=== PATIENT | female | born 2000 | race African-American/Black ===

== ENCOUNTER 2020-05-29 02:27 | Emergency (ER) | payer SELFPAY ==
[2020-05-29] MEDS ORDERED: predniSONE 20 MG TAB ONE (03:38)
[2020-05-29] MEDS ORDERED: NA CHLORIDE 0.9% 1,000 ML ONE (03:38)
[2020-05-29] MEDS ORDERED: DIPHENHYDRAMINE 50 MG/ML VIAL ONE (03:38)
[2020-05-29] MEDS ORDERED: METHYLPREDNISOLONE 125 MG INJ ONE (03:38)
[2020-05-29] MEDS ORDERED: FAMOTIDINE 20 MG/2 ML VIAL IV ONE (03:39)
[2020-05-29 03:53] LABS: Absolute Lymphocytes (CBC) 2.8 K/uL (0.7-4.9); Basophils % 0.7 % (0-1.3); Hematocrit 37.1 % (36.0-45.0); Lymphocytes % 33.3 % (15.3-44.8); MPV 8.8 fL (7.6-11.3); RBC Red Blood Cell Count 5.17 M/uL (3.86-4.86)
[2020-05-29 04:05] LABS: Bilirubin Total 0.4 mg/dL (0.2-1.0); Potassium 3.6 mmol/L (3.5-5.1)
[2020-05-29 04:15] LABS: Urine Blood 3+ (NEG); Urine Glucose NEGATIVE (NEG); Urine Protein NEGATIVE (NEG)
--- NOTE | 2020-05-29 04:18 | ER ---
Nurse's Notes [facility] Name: Rose Lucio Age: 19 yrs Sex: Female : 2000 Arrival Date: 05/29/2020 Time: 02:28 Bed 6 Private MD: Diagnosis: Allergic contact dermatitis Presentation: 05/29 03:06 Chief complaint: Patient states: she is having an allergic reaction to something which bb started yesterday pt recently travelled to [facility] but was okay when she arrived back, denies angioedema, difficulty swallowing. Coronavirus screen: At this time, the client does not indicate any symptoms associated with coronavirus-19. Ebola Screen: No symptoms or risks identified at this time. Onset: The symptoms/episode began/occurred suddenly. Anaphylaxis evaluation, no signs or symptoms of anaphylaxis were noted. Initial Sepsis Screen: Does the patient meet any 2 criteria? No. Patient's initial sepsis screen is negative. Does the patient have a suspected source of infection? No. Patient's initial sepsis screen is negative. Risk Assessment: Do you want to hurt yourself or someone else? Patient reports no desire to harm self or others. Onset of symptoms was May 28, 2020. 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 - Social history:: Smoking status: Patient denies any tobacco usage or history of. - Family history:: not pertinent. Screenin:30 Abuse screen: Denies threats or abuse. Denies injuries from another. Nutritional lp1 screening: No deficits noted. Tuberculosis screening: No symptoms or risk factors identified. Fall Risk None identified. Assessment: 03:45 General: Appears in no apparent distress. Behavior is calm, cooperative, appropriate lp1 for age. Pain: Denies pain. Neuro: Level of Consciousness is awake, alert, obeys commands. Cardiovascular: Patient's skin is warm and dry. Respiratory: Airway is patent Trachea midline Respiratory effort is even, unlabored, Respiratory pattern is regular, Breath sounds are clear bilaterally. Denies shortness of breath. GI: No signs and/or symptoms were reported involving the gastrointestinal system. : No signs and/or symptoms were reported regarding the genitourinary system. EENT: No signs and/or symptoms were reported regarding the EENT system. Derm: Skin is intact, Skin is dry, Skin is normal, Reports itching, to face and bilateral arms. Musculoskeletal: No deficits noted. 04:30 Reassessment: Patient appears in no apparent distress at this time. Patient states lp1 feeling better. Vital Signs: 03:06 BP 121 / 55; Pulse 69; Resp 14 S; Temp 98.2(O); Pulse Ox 100% on R/A; Weight 60.78 kg bb (R); Height 5 ft. 4 in. (162.56 cm) (R); Pain 0/10; 04:00 BP 111 / 90; Pulse 65; Resp 14; Pulse Ox 100% on R/A; lp1 04:45 BP 108 / 82; Pulse 70; Resp 14; Pulse Ox 100% on R/A; lp1 03:06 Body Mass Index 23.00 (60.78 kg, 162.56 cm) ED Course: 02:28 Patient arrived in ED. am2 02:48 Marlon Mcgovern MD is Attending Physician. [facility] 03:08 Triage completed. 03:08 Arm band placed on Patient placed in an exam room, on a stretcher, on pulse oximetry. bb Family accompanied patient. 03:30 Patient has correct armband on for positive identification. Placed in gown. Bed in low lp1 position. 03:40 Inserted saline lock: 20 gauge in right forearm, using aseptic technique. Blood rr5 collected. 03:46 Brooklyn Cherry, RN is Primary Nurse. lp1 04:53 No provider procedures requiring assistance completed. IV discontinued, No lp1 redness/swelling at site. Pressure dressing applied. Administered Medications: 03:40 Drug: NS 0.9% 1000 ml Route: IV; Rate: 1 bolus; Site: right forearm; rr5 04:50 Follow up: IV Status: Completed infusion; IV Intake: 700ml lp1 04:00 Drug: Benadryl 25 mg Route: IVP; Site: right antecubital; lp1 04:50 Follow up: Response: No adverse reaction lp1 04:00 Drug: SOLU-Medrol 125 mg Route: IVP; Site: right antecubital; lp1 04:51 Follow up: Response: No adverse reaction lp1 04:00 Drug: predniSONE 40 mg Route: PO; lp1 04:51 Follow up: Response: No adverse reaction lp1 04:00 Drug: Pepcid 20 mg Route: IVP; Site: right antecubital; lp1 04:51 Follow up: Response: No adverse reaction lp1 Intake: 04:50 IV: 700ml; Total: 700ml. lp1 Outcome: 04:17 Discharge ordered by . shoaib 04:54 Discharged to home ambulatory, with family. lp1 04:54 Condition: good 04:54 Condition: good 04:54 Discharge instructions given to patient, community service specialist, Instructed on discharge instructions, follow up and referral plans. medication usage, Demonstrated understanding of instructions, follow-up care, medications, Prescriptions given X 3. 04:55 Patient left the ED. lp1 Signatures: Marlon Mcgovern MD MD cha Ballard, Brenda RN RN bb Brooklyn Cherry RN RN lp1 Candida Figueroa am2 Dg Vidal, RN RN rr5 Corrections: (The following items were deleted from the chart) 04:17 04:17 SOLU-Medrol 125 mg IVP in right antecubital lp1 lp1
--- NOTE | 2020-05-29 04:18 | EDPHYS ---
Physician Documentation [facility] Name: Rose Lucio Age: 19 yrs Sex: Female : 2000 Arrival Date: 05/29/2020 Time: 02:28 Bed 6 Private MD: CHRISTINA Physician Marlon Mcgovern HPI: 05/29 04:12 This 19 yrs old Black Female presents to ER via Ambulatory with complaints of Allergic shoaib Reaction. 04:12 This 19 yrs old Black Female presents to ER via Ambulatory with complaints of Allergic shoaib Reaction. 04:12 The patient presents with localized swelling. Onset: The symptoms/episode shoaib began/occurred 1 day(s) ago. Associated signs and symptoms: The patient has no apparent associated signs or symptoms. Possible causes: The patient has no known obvious cause for the symptoms. At home the patient or guardian has treated the symptoms with nothing. Severity of symptoms: At their worst the symptoms were mild in the emergency department the symptoms are unchanged. The patient has not experienced similar symptoms in the past. 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 - Social history:: Smoking status: Patient denies any tobacco usage or history of. - Family history:: not pertinent. ROS: 04:12 Constitutional: Negative for fever, chills, and weight loss, ENT: Negative for injury, shoaib pain, and discharge, Neck: Negative for injury, pain, and swelling, Cardiovascular: Negative for chest pain, palpitations, and edema, Respiratory: Negative for shortness of breath, cough, wheezing, and pleuritic chest pain, Abdomen/GI: Negative for abdominal pain, nausea, vomiting, diarrhea, and constipation, Back: Negative for injury and pain, : Negative for injury, bleeding, discharge, and swelling, MS/Extremity: Negative for injury and deformity, Neuro: Negative for headache, weakness, numbness, tingling, and seizure, Psych: Negative for depression, anxiety, suicide ideation, homicidal ideation, and hallucinations, Allergy/Immunology: Negative for hives, rash, and allergies, Endocrine: Negative for neck swelling, polydipsia, polyuria, polyphagia, and marked weight changes, Hematologic/Lymphatic: Negative for swollen nodes, abnormal bleeding, and unusual bruising. 04:12 Skin: Positive for swelling, of the face. Exam: 04:12 Constitutional: This is a well developed, well nourished patient who is awake, alert, shoaib and in no acute distress. Eyes: Pupils equal round and reactive to light, extra-ocular motions intact. Lids and lashes normal. Conjunctiva and sclera are non-icteric and not injected. Cornea within normal limits. Periorbital areas with no swelling, redness, or edema. ENT: Nares patent. No nasal discharge, no septal abnormalities noted. Tympanic membranes are normal and external auditory canals are clear. Oropharynx with no redness, swelling, or masses, exudates, or evidence of obstruction, uvula midline. Mucous membranes moist. Neck: Trachea midline, no thyromegaly or masses palpated, and no cervical lymphadenopathy. Supple, full range of motion without nuchal rigidity, or vertebral point tenderness. No Meningismus. Chest/axilla: Normal chest wall appearance and motion. Nontender with no deformity. No lesions are appreciated. Cardiovascular: Regular rate and rhythm with a normal S1 and S2. No gallops, murmurs, or rubs. Normal PMI, no JVD. No pulse deficits. Respiratory: Lungs have equal breath sounds bilaterally, clear to auscultation and percussion. No rales, rhonchi or wheezes noted. No increased work of breathing, no retractions or nasal flaring. Abdomen/GI: Soft, non-tender, with normal bowel sounds. No distension or tympany. No guarding or rebound. No evidence of tenderness throughout. Back: No spinal tenderness. No costovertebral tenderness. Full range of motion. Pelvic Exam: Normal external genitalia. Speculum exam with closed cervical os, no discharge or bleeding noted. Bimanual exam with normal adnexa, no adnexal or cervical motion tenderness. Normal uterus. Female : Normal external genitalia. 04:12 Head/face: Noted is swelling, that is mild, of the right eye and left eye. Vital Signs: 03:06 BP 121 / 55; Pulse 69; Resp 14 S; Temp 98.2(O); Pulse Ox 100% on R/A; Weight 60.78 kg bb (R); Height 5 ft. 4 in. (162.56 cm) (R); Pain 0/10; 04:00 BP 111 / 90; Pulse 65; Resp 14; Pulse Ox 100% on R/A; lp1 04:45 BP 108 / 82; Pulse 70; Resp 14; Pulse Ox 100% on R/A; lp1 03:06 Body Mass Index 23.00 (60.78 kg, 162.56 cm) MDM: 02:55 Patient medically screened. [facility] 04:15 Differential diagnosis: anaphylaxis, angioedema. Data reviewed: vital signs, nurses [facility] notes. 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 Counseling: I had a detailed discussion with the patient and/or guardian regarding: the historical points, exam findings, and any diagnostic results supporting the discharge/admit diagnosis, lab results. 05/29 02:49 Order name: CBC with Diff; Complete Time: 04:18 [facility] 05/29 02:49 Order name: Comprehensive Metabolic Panel; Complete Time: 04:18 [facility] 05/29 04:13 Order name: Urine Dipstick--Ancillary (enter results); Complete Time: 04:18 [facility] 05/29 04:13 Order name: Urine --Ancillary (enter results); Complete Time: 04:18 [facility] 05/29 02:49 Order name: Urine Dipstick-Ancillary (obtain specimen); Complete Time: 04:11 [facility] 05/29 02:49 Order name: Urine Test (obtain specimen); Complete Time: 04:11 [facility] 05/29 04:18 Order name: Ice pack; Complete Time: 04:50 [facility] Administered Medications: 03:40 Drug: NS 0.9% 1000 ml Route: IV; Rate: 1 bolus; Site: right forearm; rr5 04:50 Follow up: IV Status: Completed infusion; IV Intake: 700ml lp1 04:00 Drug: Benadryl 25 mg Route: IVP; Site: right antecubital; lp1 04:50 Follow up: Response: No adverse reaction lp1 04:00 Drug: SOLU-Medrol 125 mg Route: IVP; Site: right antecubital; lp1 04:51 Follow up: Response: No adverse reaction lp1 04:00 Drug: predniSONE 40 mg Route: PO; lp1 04:51 Follow up: Response: No adverse reaction lp1 04:00 Drug: Pepcid 20 mg Route: IVP; Site: right antecubital; lp1 04:51 Follow up: Response: No adverse reaction lp1 Disposition: 05/29/20 04:17 Discharged to Home. Impression: Allergic contact dermatitis. - Condition is Stable. - Prescriptions for Benadryl 25 mg Oral Capsule - take 1 capsule by ORAL route every 6 hours As needed; 30 tablet. Prednisone 20 mg Oral Tablet - take 2 tablet by ORAL route once daily for 5 days; 10 tablet. Pepcid 20 mg Oral Tablet - take 1 tablet by ORAL route once daily; 20 tablet. - Medication Reconciliation Form, Thank You Letter, Antibiotic Education, Prescription Opioid Use form. - Follow up: Private Physician; When: 2 - 3 days; Reason: Recheck today's complaints, Continuance of care, Re-evaluation by your physician. - Problem is new. - Symptoms have improved. Signatures: Dispatcher [employer] EDMS Marlon Mcgovern MD MD cha Ballard, Brenda, RN RN bb Brooklyn Cherry RN RN lp1 Dg Vidal RN RN rr5 Corrections: (The following items were deleted from the chart) 04:55 04:17 05/29/2020 04:17 Discharged to Home. Impression: Allergic contact dermatitis. lp1 Condition is Stable. Forms are Medication Reconciliation Form, Thank You Letter, Antibiotic Education, Prescription Opioid Use. Follow up: Private Physician; When: 2 - 3 days; Reason: Recheck today's complaints, Continuance of care, Re-evaluation by your physician. Problem is new. Symptoms have improved. shoaib
[2020-05-29 05:12] VITALS: TEMP 98.2; O2SAT 100
[2020-05-29 05:15] VITALS: BP 108/82
== END 2020-05-29 04:55 | disposition home or self-care (01) ==
LOC: ER 02:27
DX: L23.9 Allergic contact dermatitis, unspecified cause (principal); Z88.0 Allergy status to penicillin
CPT/HCPCS: 36415; 80053; 81003; 81025; 85025; 96361; 96374; 96375; 99284; J1200; J2930; J7030; J7512

== ENCOUNTER 2022-04-10 21:25 | Emergency (ER) | payer BC, SELFPAY ==
--- OUTSIDE RECORDS SUMMARY | 2022-04-10 21:28 | XMS REPORT | Continuity of Care Document ---
:2000 Author Organization [facility] t Address [address] [place] [address] Care Team Providers Name Role Phone Rhoda Pan Attending Clinician Unavailable Gulshan Sandoval Attending Clinician Unavailable Cammy John Attending Clinician Unavailable Physician, No Primary or Family Admitting Clinician Unavaila ble Payers Payer Name Policy Type Policy Number Effective Date Expiration Date S ource Problems Condition Condition Condition Status Onset Resolution Last Treating Co mments Source Name Details Category Date Date Treatment Clinician Date Contracept Contracept Diagnosis Active [facility] ion ion Clinic management management Encounter Encounter Diagnosis Active H ope for for Clinic Nexplanon Nexplanon removal removal Allergies, Adverse Reactions, Alerts Allergy Allergy Status Severity Reaction(s) Onset Inactive Treating Comm ents Source Name Type Date Date Clinician Penicill DA Active U ANAPHYLAXIS [facility] ins 09-20 [place] 00:00: [address] penicill Adverse Active hives [facility] in Reaction Clinic Medications Ordered Filled Start Stop Current Ordering Indication Dosage Frequency Signature Comments Components Source Medication Medication Date Date Medication? Clinician (SIG) Name Name Microgestin Microgestin Yes Simrta 1 tablet Hope 09/15 1-24 [facility] 00:00: 00 Procedures This patient has no known procedures. Encounters Start End Encounter Admission Attending Care Care Encounter Source Date/Time Date/Time Type Type Clinicians Facility Department ID 2021-09-21 Outpatient Shruti[facility]Marly[facility] [id number] [place] 11:02:56 [place], [id number] Clinic Surjitlaila 2021-11-29 2021-11-29 Emergency EM BLANK SandovalWU LILA [id number] [facility] 01:38:00 05:45:00 Gulshan [id number] [facility] 2021-11-29 2021-11-29 Emergency EM Aiawarun, HCAWU HCAWU [id number] [facility] 01:38:00 05:45:00 Gulshan 50 [facility] 2021-09-20 2021-09-20 Emergency EM Oariadneaku, BLANKWU LILA [id number] [facility] 12:55:00 15:18:00 Cammy [id number] [facility] 2021-09-20 2021-09-20 Emergency EM Oalvinou, HCAWU HCAWU [id number] [facility] 12:55:00 15:18:00 Cammy 43 [facility] 2019-09-19 2019-09-19 Outpatient [facility] [id number] [place] 08:30:00 08:30:00 CLINIC [facility] 2018-06-18 2018-06-18 Outpatient [facility] [id number] [place] 14:45:00 14:45:00 [facility] Results Test Description Test Time Test Comments Results Result Comments Source URINALYSIS COMPLETE 2021-11-29 03:12:00 Test Item Value Reference Range Interpretation Comme nts UA COLOR (test code = COLU) YELLOW YELLOW UA APPEARANCE (test code = APPU) CLEAR CLEAR UA GLUCOSE DIPSTICK (test code = DGLUU) NORMAL MG/DL NORMAL UA BILIRUBIN DIPSTICK (test code = BILU) NEGATIVE MG/DL NEGATIVE UA KETONE DIPSTICK (test code = KETU) NEGATIVE MG/DL NEGATIVE UA SPECIFIC GRAVITY (test code = SGU) 1.025 1.003-1.030 N UA BLOOD DIPSTICK (test code = MAYA) 25 Ismael/mm3 NEGATIVE A UA PH DIPSTICK (test code = GRACIELA) 6.0 5.0-9.0 N UA PROTEIN DIPSTICK (test code = PROU) 30 MG/DL NEGATIVE A UA UROBILINIOGEN DIPSTICK (test code = URO) NORMAL MG/DL NORMAL UA NITRITE DIPSTICK (test code = MIR) NEGATIVE NEGATIVE UA LEUKOCYTE ESTERASE DIPSTICK (test code = LEUU) NEGATIVE /mm3 NEG ATIVE UA CULTURE NEEDED? (test code = UACULT) NO, WBC<10 Criteria Culture Chk SOURCE OF URINE: CLEAN CATCHUA [id number] 03:12:00 Test Item Value Reference Range Interpretation Comments UA RBC (test code = 0-3 RBC/HPF 0-3 RBCU) UA WBC (test code = 0-3 WBC/HPF 0-5 XWBCU) UA EPITHELIAL CELLS FEW EPI/HPF FEW (test code = EPIU) UA BACTERIA (test RARE NONE code = XBACU) UA HYALINE CAST (test 0-5 See_Comment A [Auto mated message] code = HYALU) The system [employer] generated this result transmitted ref erence range: 0-2/HPF. The reference range was not used to int erpret this result as normal/abnormal . SOURCE OF URINE: CLEAN CATCHDRUGS OF ABUSE SCREEN [id number] 03:12:00 Test Item Value Reference Range Interpretation Comments UR COCAINE (test code = NEGATIVE NEGATIVE Cut off Value: 300 COCAU) ng/mL UR CANNABINOIDS (THC) POSITIVE NEGATIVE A Cut of f Value: 50 (test code = CANU) ng/mL UR AMPHETAMINE (test code NEGATIVE NEGATIVE Cu t off Value: 1000 = AMPHU) ng/mL UR BARBITURATE QUAL (test NEGATIVE NEGATIVE Cu t off Value: 200 code = BARBQLU) ng/mL UR BENZODIAZEPINE (test NEGATIVE NEGATIVE Cut off Value: 200 code = BENZU) ng/mL UR OPIATES QUAL (test code NEGATIVE NEGATIVE C ut off Value: 300 = OPIAQLU) ng/mL UR PHENCYCLIDINE (PCP) NEGATIVE NEGATIVE Cut o ff Value: 25 (test code = PHENCU) ng/mL SOURCE OF URINE: CLEAN CATCHBASIC METABOLIC [id number] 02:44:00 Test Item Value Reference Range Interpretation Comments SODIUM (test code = 138 MMOL/L 137-145 N NA) POTASSIUM (test code = 3.5 MMOL/L 3.5-5.1 N K) CHLORIDE (test code = 102 MMOL/L 98-107 N CL) CARBON DIOXIDE (test 25 MMOL/L 22-30 N code = CO2) GLUCOSE (test code = 142 MG/DL 74-106 H GLU) BLOOD UREA NITROGEN 17 MG/DL 7-17 N (test code = BUN) GLOMERULAR FILTRATION > 60 Report ing units: RATE (test code = GFR) ml/mi n/1.73 m2 (Modified MDRD Formula)Referen ce Range: > or = 6 0 ml/min/1.73 m2 CREATININE (test code 1.20 MG/DL 0.52-1.04 H = CREAT) CALCIUM (test code = 8.9 MG/DL 8.4-10.2 N CA) HEPATIC FUNCTION [id number] 02:44:00 Test Item Value Reference Range Interpretation Comments TOTAL PROTEIN 8.0 G/DL 6.3-8.2 N [facility] Clinical Diagnostic (test code = has made us mayela re of PROT) newinformation regarding the potential i nterference ofEltrombopag ( a bone marrow stimulan t used to treatthrombocyt onmenia and aplastic anemia ) with specific assays on the Good [employer] 5600 of which Total Protein is one of thoseassays per formed in our lab.Interfe rence testing perform ed at Ortho determined that Eltrombopag does interfere with Vitros Total Protein asfollowsEltrom bopag Interference fo r Vitros Product Total Protein:======= Eltrombopag Max Observed Av gJunaid BiasConray on Concentration Concentration== ==== 2.5 mg/dl 6.0 g/dl +0.41 +0.34 3.5 mg/dl 6.0 g /dl +0.50 +0.45 5 mg/dl 6 .0 g/dl +0.73 +0.65 2.5 mg/dl 8.0 g/dl +0.44 +0.4 1 3.5 mg/dl 8.0 g/dl +0.55 +0.52 5 mg/dl 8.0 g/dl +0.86 +0.77 ALBUMIN (test 4.5 G/DL 3.5-5.0 N code = ALB) BILIRUBIN TOTAL 0.4 MG/DL 0.2-1.3 N Eltrombopag Interference (test code = for Vitros Prod uct TBil, BILT) BuBc: Assa y Eltrombopag Rebeca lyte/ Max Observed Avg. B ias Concentration C oncentration Concentration== ====TBil 7mg/dl TBil/ 1. 2mg/dl +0.23mg.dl +0.2 0mg/dlBuBc 3.5mg/dl Bu/0.8 mg/dl +0.25mg/dl +0.2 4mg/dlBuBc 7 mg/dl Bu/14.2mg /dl +0.38mg/dl +0.2 5mg/dlBuBc 5mg/dl Bc/0mg/d l +0.25mg/dl +0.15mg/dlBuBc 3.5mg/dl Bc/2.8mg/dl +0. 25mg/dl +0.23mg/dl BILIRUBIN DIRECT 0.0 MG/DL 0.0-0.3 N Eltrombopag Interference (test code = for Vitros Prod uct TBil, BILD) BuBc: Assa y Eltrombopag Rebeca lyte/ Max Observed Avg. B ias Concentration C oncentration Concentration== ====TBil 7mg/dl TBil/ 1. 2mg/dl +0.23mg.dl +0.2 0mg/dlBuBc 3.5mg/dl Bu/0.8 mg/dl +0.25mg/dl +0.2 4mg/dlBuBc 7 mg/dl Bu/14.2mg /dl +0.38mg/dl +0.2 5mg/dlBuBc 5mg/dl Bc/0mg/ dl +0.25mg/dl +0.1 5mg/dlBuBc 3.5mg/dl Bc/2.8 mg/dl +0.25mg/dl +0.2 3mg/dl SGOT/AST (test 39 UNITS/L 14-36 H code = AST) SGPT/ALT (test 32 UNITS/L 0-34 N code = ALT) ALKALINE 57 UNITS/L 38-126 N PHOSPHATASE (test code = ALKP) [id number] 02:44:00 Test Item Value Reference Range Interpretation Comments ACETAMINOPHEN (test code = < 10.0 MCG/ML 10-30 L ACET) [id number] 02:44:00 Test Item Value Reference Range Interpretation Comments SALICYLATE (test code = MARGI) < 1.0 MG/DL <2.0 [id number] 02:44:00 Test Item Value Reference Range Interpretation Comments ALCOHOL (test code = ALC) < 10.0 MG/DL <10 HCG SERUM [id number] 02:42:00 Test Item Value Reference Range Interpretation Comments HCG SERUM QUAL (test code = HCGQL) NEGATIVE NEGATIVE CBC W/AUTO [id number] 02:15:00 Test Item Value Reference Range Interpretation Comments WHITE BLOOD CELL (test code = 9.3 K/MM3 3.8-9.8 N WBC) RED BLOOD CELL (test code = 5.03 M/MM3 3.58-4.97 H RBC) HEMOGLOBIN (test code = HGB) 11.4 G/DL 11.2-14.9 N HEMATOCRIT (test code = HCT) 36.7 % 33.2-43.5 N MEAN CELL VOLUME (test code = 73 fL 80.7-99.1 L MCV) MEAN CELL HGB (test code = MCH) 22.7 pg 27.0-34.1 L MEAN CELL HGB CONCETRATION 31.1 % 32.2-35.7 L (test code = MCHC) RED CELL DISTRIBUTION WIDTH 15.6 % 12.1-15.2 H (test code = RDW) PLATELET COUNT (test code = 346 K/MM3 129-368 N PLT) MEAN PLATELET VOLUME (test code 9.7 fl 7.4-10.4 N = MPV) NEUTROPHIL % (test code = NT%) 51.8 % 43-75 N IMMATURE GRANULOCYTE % (test 0.2 % 0.0-2.0 N code = IG%) LYMPHOCYTE % (test code = LY%) 39.2 % 14-44 N MONOCYTE % (test code = MO%) 7.6 % 4-13 N EOSINOPHIL % (test code = EO%) 0.8 % 0-6 N BASOPHIL % (test code = BA%) 0.4 % 0-2 N NUCLEATED RBC % (test code = 0.0 % 0-1.0 N NRBC%) NEUTROPHIL # (test code = NT#) 4.79 K/mm3 2.0-7.6 N IMMATURE GRANULOCYTE # (test 0.02 x10 3/uL 0-0.03 N code = IG#) LYMPHOCYTE # (test code = LY#) 3.63 K/mm3 1.0-3.8 N MONOCYTE # (test code = MO#) 0.70 K/mm3 0.1-0.8 N EOSINOPHIL # (test code = EO#) 0.07 K/mm3 0.0-0.2 N BASOPHIL # (test code = BA#) 0.04 K/mm3 0.0-0.2 N NUCLEATED RBC # (test code = 0.00 K/mm3 0.0-0.1 N NRBC#) - DUP AB/PEL/SC [id number] 14:33:00 [facility] 2000 Sex: F Patient Name: SCOOBY BRUSH Unit No: [id number] EXAMS: CPT CODE: [id number] DUP AB/PEL/SC LTD 30838 ULTRASOUND:- DUP AB/PEL/SC LTD, - US PREG UT TRANSVAGINAL, - US PREG 1ST TRIMTR History: at 7 weeks with lower abdominal pain Comparison: None. B-mode/Johnson scale imaging with color Doppler perfusion imaging and spectral analysis was performed. The uterus measures 8.1 x 5.7 x 6.5 cm. A single gestation is seen within or single rounded gestational sac. Amniotic fluid appears to be normal. The expected date of delivery is May 10, 2022, +/- 4 days making this a 6 week and 6 day gestation. Menstrualage one week more advanced at 7 weeks and 6 days. Heart rate rate at 133 BPM. A subchronic hemorrhage suggested at 1.6 x 2.4 x 0.6 cm adjacent to the left aspect of the gestational sac and may need further follow-up. The right ovary is 2.5 x 1.4 x 2.6 cm with normal arterial Doppler flow pattern. The left ovary at 3.7 x 2.5 x 2.4 cm contains a 2.7 x 1.8 x 2 cm complex likely hemorrhagic cyst, almost i sodense echogenic with the ovarian tissue. Impression: 6 week and 6 day single viable gestation. Small to moderate subchorionic hemorrhage seen with follow-up recommended in the next 1-2 weeks. Location: U 19 at 1433 Reported and signed by: JUJU MIKE MD CC: Cammy John DO Technologist: Ghazala Zapata RDMS(); SN [id number] Transcrpt Date/Tm/Trnsp: 09/20/2021 (2283) [email or web address] Orig Print D/T: S: 09/20/2021 (1436) [facility] NAME: SCOOBY BRUSH [id number] PHYS: Cammy [place] [address] : 2000 AGE: 20 SEX: F LOC: Z.ERS PHONE #: [phone] EXAM DATE: 09/20/2021 STATUS: REG ER FAX #: [phone] RADIOLOGY NO: PAGE 1 Signed Report- US PREG UT [id number] 14:33:00 [facility] : 2000 Sex: F Patient Name: SCOOBY BRUSH Unit No: [id number] EXAMS: CPT CODE: [id number] US PREG UT TRANSVAGINAL 90545 ULTRASOUND: - DUP AB/PEL/SC LTD, - US PREG UT TRANSVAGINAL, - US PREG 1ST TRIMTR History: at 7 weeks with lower abdominal pain Comparison: None. B-mode/Johnson scale imaging with color Doppler perfusion imaging and spectral analysis was performed. The uterus measures 8.1 x 5.7 x 6.5 cm. A single gestation is seen within or single rounded gestational sac. Amniotic fluid appears to be normal. The expected date of delivery is May 10, 2022, +/- 4 days making this a 6 week and 6 day gestation. Menstrual age one week more advanced at 7 weeks and 6 days. Heart rate rate at 133 BPM. A subchronic hemo rrhage suggested at 1.6 x 2.4 x 0.6 cm adjacent to the left aspect of the gestational sac and may need further follow-up. The right ovary is 2.5 x 1.4 x 2.6 cm with normal arterial Doppler flow pattern. The left ovary at 3.7 x 2.5 x 2.4 cm contains a 2.7 x 1.8 x 2 cm complex likely hemorrhagic cyst, almost isodense echogenic with the ovarian tissue. Impression: 6 week and 6 day single viable gestation. Small to moderate subchorionic hemorrhage seen with follow-up recommended in the next 1-2 weeks. Location: U 19 at 1433 Reportedand signed by: JUJU MIKE MD CC: Cammy John DO Technologist: Ghazala Zapata RDMS(); SN [id number] Transcrpt Date/Tm/Trnsp: 09/20/2021 (1433) [email or web address] Orig Print D/T: S: 09/20/2021 (1436) [facility] NAME: SCOOBY BRUSH [id number] [address] PHYS: [place] [address] : 2000 AGE: 20 SEX: F LOC: TESS PHONE #: [phone] EXAM DATE: 09/20/2021 STATUS: REG ER FAX #: [phone] RADIOLOGY NO: PAGE 1 Signed Report- US PREG 1ST TRIMTR 2021-09-20 14:33:00 [facility] : 2000 Sex: F Patient Name: SCOOBY BRUSH Unit No: [id number] EXAMS: CPT CODE: [id number] US PREG 1ST TRIMTR 40237 ULTRASOUND: - DUP AB/PEL/SC LTD, - US PREG UT TRANSVAGINAL, - US PREG 1ST TRIMTR History: at 7 weekswith lower abdominal pain Comparison: None. B-mode/Johnson scale imaging with color Doppler perfusion imaging and spectral analysis was performed. The uterus measures 8.1 x 5.7 x 6.5 cm. A single gestation is seen within or single rounded gestational sac. Amniotic fluid appears to be normal. The expecteddate of delivery is May 10, 2022, +/- 4 days making this a 6 week and 6 day gestation. Menstrual age one week more advanced at 7 weeks and 6 days. Heart rate rate at 133 BPM. A subchronic hemorrh age suggested at 1.6 x 2.4 x 0.6 cm adjacent to the left aspect of the gestational sac and may need further follow-up. The right ovary is 2.5 x 1.4 x 2.6 cm with normal arterial Doppler flow pattern. The left ovary at 3.7 x 2.5 x 2.4 cm contains a 2.7 x 1.8 x 2 cm complex likely hemorrhagic cyst, almost isodense echogenic with the ovarian tissue. Impression: 6 week and 6 day single viable gestation. Small to moderate subchorionic hemorrhage seen with follow-up recommended in the next 1-2 weeks. Location: [facility] at 1433 Reported andsigned by: JUJU MIKE MD CC: Jeromy Palmer DO; Cammy John DO Technologist: Ghazala Zapata RDMS(); SN [id number] Transcrpt Date/Tm/Trnsp: 09/20/2021 (1433) [email or web address] Orig Print D/T: S: 09/20/2021(1436) [facility] NAME: SCOOBY BRUSH [id number] PHYS: [id number] - Jeromy [place] [address] [place] [address] : 2000 AGE: 20 SEX: F LOC: Z.KITTY PHONE #: [phone] EXAM DATE: 09/20/2021 STATUS: REG ER FAX #: [phone] RADIOLOGY NO: PAGE 1 Signed ReportUR HCG QUAL 2021-09-20 13:42:00 Test Item Value Reference Range Interpretation Comments UR HCG QUAL (test code = HCGQLU) POSITIVE NEGATIVE URINALYSIS [id number] 13:30:00 Test Item Value Reference Range Interpretation Comments UA COLOR (test code = YELLOW YELLOW COLU) UA APPEARANCE (test code CLEAR CLEAR = APPU) UA GLUCOSE DIPSTICK (test 50 MG/DL NORMAL A code = DGLUU) UA BILIRUBIN DIPSTICK NEGATIVE MG/DL NEGATIVE (test code = BILU) UA KETONE DIPSTICK (test NEGATIVE MG/DL NEGATIVE code = KETU) UA SPECIFIC GRAVITY (test 1.010 1.003-1.030 N code = SGU) UA BLOOD DIPSTICK (test NEGATIVE Ismael/mm3 NEGATIVE code = MAYA) UA PH DIPSTICK (test code 7.0 5.0-9.0 N = GRACIELA) UA PROTEIN DIPSTICK (test NEGATIVE MG/DL NEGATIVE code = PROU) UA UROBILINIOGEN DIPSTICK NORMAL MG/DL NORMAL (test code = URO) UA NITRITE DIPSTICK (test NEGATIVE NEGATIVE code = MIR) UA LEUKOCYTE ESTERASE NEGATIVE /mm3 NEGATIVE DIPSTICK (test code = LEUU) UA CULTURE NEEDED? (test NEGATIVE, NO CULTURE Culture Chk code = UACULT) Criteria
[2022-04-10] MEDS ORDERED: NA CHLORIDE 0.9% 1,000 ML ONE (23:05)
[2022-04-10] MEDS ORDERED: KETOROLAC 30 MG/ML INJ ONE (23:05)
[2022-04-10 23:10] LABS: Urine Blood Trace-intact (Negative); Urine Glucose Negative (Negative); Urine Protein Trace (Negative); Urine Specific Gravity 1.025 (1.005-1.030)
[2022-04-10 23:23] LABS: Absolute Lymphocytes (CBC) 2.5 K/uL (0.7-4.9); Hematocrit 36.8 % (36.0-45.0); Lymphocytes % 41.7 % (15.3-44.8); MCV 70.4 fL (80-100); MPV 8.1 fL (7.6-11.3); RBC Red Blood Cell Count 5.22 M/uL (3.86-4.86)
[2022-04-10 23:37] LABS: Albumin 3.6 g/dL (3.4-5.0); Bilirubin Total 0.4 mg/dL (0.2-1.0); Protein, Total 7.3 g/dL (6.4-8.2)
[2022-04-10 23:47] LABS: Urine Specific Gravity/Preg 1.025 (1.005-1.030)
[2022-04-10 23:47] LABS: Urine Bacteria <20 /HPF (<20); Urine RBC <5 /HPF (None Seen)
[2022-04-10 23:48] LABS: Potassium 3.8 mmol/L (3.5-5.1)
[2022-04-11] MEDS ORDERED: LIDOCAINE 4% PATCH ONE (00:53)
--- NOTE | 2022-04-11 01:55 | EDPHYS ---
Physician Documentation [facility] Name: Rose Lucio Age: 21 yrs Sex: Female : 2000 Arrival Date: 04/10/2022 Time: 21:30 Bed Treatment Private MD: ED Physician Rashaad Jeong HPI: 04/10 22:40 This 21 yrs old Black Female presents to ER via Ambulatory with complaints of Low Back cp Pain. 22:40 The patient presents with pain that is acute, with no known mechanism of injury. The cp symptoms are located in the middle mid back. The pain radiates to the epigastric area of abdomen. The problem was sustained from unknown cause. Onset: The symptoms/episode began/occurred yesterday. 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 - Social history:: Smoking status: Patient denies any tobacco usage or history of. ROS: 22:45 Constitutional: Negative for body aches, chills, fever, poor PO intake. cp 22:45 Eyes: Negative for injury, pain, redness, and discharge. cp 22:45 ENT: Negative for drainage from ear(s), ear pain, sore throat, difficulty swallowing, difficulty handling secretions. 22:45 Cardiovascular: Negative for chest pain, edema, palpitations. 22:45 Respiratory: Negative for cough, shortness of breath, wheezing. 22:45 Abdomen/GI: Positive for abdominal pain, of the epigastric area, Negative for vomiting, diarrhea, constipation, anorexia. 22:45 Back: Positive for pain at rest, of the middle mid back, Negative for injury or acute deformity, decreased range of motion. 22:45 : Negative for urinary symptoms, flank pain. 22:45 Neuro: Negative for altered mental status, headache, weakness. 22:45 All other systems are negative. Exam: 22:50 Constitutional: The patient appears in no acute distress, alert, awake, non-toxic, well cp developed, well nourished. 22:50 Head/Face: Normocephalic, atraumatic. cp 22:50 Eyes: Periorbital structures: appear normal, Conjunctiva: normal, no exudate, no injection, Sclera: no appreciated abnormality, Lids and lashes: appear normal, bilaterally. 22:50 ENT: External ear(s): are unremarkable, Nose: is normal, Mouth: Lips: moist, Oral mucosa: pink and intact, moist, Posterior pharynx: Airway: no evidence of obstruction, patent. 22:50 Neck: ROM/movement: is normal, is supple, without pain, no range of motions limitations, no nuchal rigidity. 22:50 Chest/axilla: Inspection: normal. 22:50 Cardiovascular: Rate: normal, Rhythm: regular, Edema: is not appreciated, JVD: is not appreciated. 22:50 Respiratory: the patient does not display signs of respiratory distress, Respirations: normal, no use of accessory muscles, no retractions, labored breathing, is not present, Breath sounds: are clear throughout, no decreased breath sounds, no stridor, no wheezing. 22:50 Abdomen/GI: Inspection: abdomen appears normal, Bowel sounds: active, all quadrants, Palpation: soft, in all quadrants, mild abdominal tenderness, in the epigastric area. 22:50 Back: pain, that is mild, of the middle mid back, ROM is normal. 22:50 Skin: cellulitis, is not appreciated, no rash present. 22:50 Neuro: Orientation: to person, place \T\ time. Mentation: is normal, Motor: moves all fours, strength is normal, Sensation: is normal, Gait: is steady, at a normal pace, without difficulty. Vital Signs: 22:11 BP 114 / 61; Pulse 67; Resp 16; Temp 97.9; Pulse Ox 100% ; Weight 52.16 kg; Height 5 vc1 ft. 6 in. (167.64 cm); Pain 10/10; 23:12 BP 118 / 62; Pulse 65; Resp 16; Pulse Ox 100% on R/A; Pain 7/10; ld1 04/11 01:15 BP 112 / 49; Pulse 60; Resp 16; Pulse Ox 100% on R/A; Pain 8/10; lp1 04/10 22:11 Body Mass Index 18.56 (52.16 kg, 167.64 cm) vc1 MDM: 04/10 22:29 Patient medically screened. cp 23:00 Differential diagnosis: fracture, sciatica, contusion, Herniated disc UTI, cp cholelithiasis. 04/11 01:56 Data reviewed: vital signs, nurses notes. Data interpreted: Pulse oximetry: on room air snw is 100 %. Interpretation: normal. Counseling: I had a detailed discussion with the patient and/or guardian regarding: the historical points, exam findings, and any diagnostic results supporting the discharge/admit diagnosis, lab results, radiology results, the need for outpatient follow up, to return to the emergency department if symptoms worsen or persist or if there are any questions or concerns that arise at home. Special discussion: Based on the patient's Hx, exam, and Dx evaluation, there is no indication for emergent surgery or inpatient Tx. It is understood by the patient/guardian that if the Sx's persist or worsen they need to return immediately for re-evaluation. Based on the history and exam findings, there is no indication for further emergent testing or inpatient evaluation. I discussed with the patient/guardian the need to see the primary care provider for further evaluation of the symptoms. 04/10 22:35 Order name: CBC with Diff; Complete Time: 23:37 cp 04/10 23:37 Interpretation: Normal except: RBC 5.22; HGB 11.9; MCV 70.4; MCH 22.8; RDW 16.9. 04/10 22:35 Order name: CMP; Complete Time: 23:50 cp 04/10 23:52 Interpretation: Normal except: CL 108; GLUC 108; GLOB 3.7; A/G 1.0; GFR 84. cp 04/10 22:35 Order name: Lipase; Complete Time: 23:50 cp 04/10 23:52 Interpretation: Reviewed. 04/10 22:35 Order name: Urine Microscopic Only; Complete Time: 23:50 cp 04/10 23:10 Order name: Urine --Ancillary (enter results); Complete Time: 23:50 mw2 04/10 23:10 Order name: Urine Dipstick-Ancillary; Complete Time: 23:37 EDMS 04/10 23:38 Interpretation: Normal except: UKET Trace; UBLD Trace-intact; UPROT Trace. 04/10 22:35 Order name: IV Saline Lock; Complete Time: 23:13 cp 04/10 22:35 Order name: Labs collected and sent; Complete Time: 23:13 cp 04/10 22:35 Order name: Urine Dipstick-Ancillary (obtain specimen); Complete Time: 23:13 cp 04/10 22:35 Order name: Urine Test (obtain specimen); Complete Time: 23:13 cp 04/10 23:51 Order name: CT Stone Protocol cp Administered Medications: 04/10 23:13 Drug: NS 0.9% 1000 ml Route: IV; Rate: 1 bolus; Site: left antecubital; ld1 04/11 00:30 Follow up: IV Status: Completed infusion; IV Intake: 1000ml lp1 04/10 23:13 Drug: Ketorolac 15 mg Route: IVP; Site: left antecubital; ld1 04/11 00:30 Follow up: Response: No adverse reaction lp1 01:15 Drug: Lidoderm Patch 5 % (700 mg/patch) 1 patches {Note: placed to mid back for pain lp1 relief.} Route: Topical; Site: wound; Disposition: 04:58 Co-signature as Attending Physician, Rashaad Jeong MD. [email or web address] Disposition Summary: 04/11/22 01:54 Discharge Ordered Location: Home snw Condition: Stable snw Diagnosis - Abdominal pain, unspecified snw - Low back pain snw - Constipation, unspecified snw Followup: snw - With: Emergency Department - When: As needed - Reason: Worsening of condition Followup: snw - With: Private Physician - When: 2 - 3 days - Reason: Recheck today's complaints, Continuance of care, Re-evaluation by your physician Discharge Instructions: - Discharge Summary Sheet snw - Abdominal Pain, Adult snw - Acute Back Pain, Adult snw - Constipation, Adult snw - Musculoskeletal Pain snw - Back Injury Prevention, [place] snw - Gas and Gas Pains, Pediatric snw - Rehydration, Adult snw Forms: - Medication Reconciliation Form snw - Thank You Letter snw - Antibiotic Education snw - Prescription Opioid Use snw - Work release form lp1 Prescriptions: - Miralax - take 17 gram by ORAL route 1-2 times daily; 1 Container; Refills: 0, Product snw Selection Permitted Signatures: Dispatcher [employer] EDMarily Deng FNP-C SERVICE COORDINATOR [facility] Brooklyn Cherry, RN RN lp1 Marlon Handley PA PA cp Rashaad Jeong MD MD mh7 Zoie Madsen, SEN RN ld1 Betsey Torres RN RN vc1 Corrections: (The following items were deleted from the chart) 04/10 23:50 23:50 Normal except: CL 108; GLUC 108; GFR 84. cp cp 23:52 23:50 Normal except: CL 108; GLUC 108; GLOB 3.7; A/G 1.0. cp cp
--- NOTE | 2022-04-11 01:55 | ER ---
Nurse's Notes [facility] Name: Rose Lucio Age: 21 yrs Sex: Female : 2000 Arrival Date: 04/10/2022 Time: 21:30 Bed Treatment Private MD: Diagnosis: Abdominal pain, unspecified;Low back pain;Constipation, unspecified Presentation: 04/10 22:11 Chief complaint: Patient states: "I have been having really bad back pain since vc1 yesterday". Coronavirus screen: Vaccine status: Patient reports receiving the 2nd dose of the covid vaccine. Pfizer At this time, the client does not indicate any symptoms associated with coronavirus-19. Ebola Screen: No symptoms or risks identified at this time. Initial Sepsis Screen: Does the patient meet any 2 criteria? No. Patient's initial sepsis screen is negative. Does the patient have a suspected source of infection? No. Patient's initial sepsis screen is negative. Risk Assessment: Do you want to hurt yourself or someone else? Patient reports no desire to harm self or others. Onset of symptoms was April 09, 2022. 22:11 Method Of Arrival: Ambulatory 1 22:11 Acuity: VALENTINO 3 vc1 Triage Assessment: 22:13 General: Appears in no apparent distress. Sitting in chair texting through entire 1 triage. Behavior is appropriate for age. Pain: Complains of pain in lumbar area and sacrum Pain does not radiate. Pain currently is 10 out of 10 on a pain scale. Neuro: Level of Consciousness is awake, alert, obeys commands, Oriented to person, place, time, situation, Appropriate for age. 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 - Social history:: Smoking status: Patient denies any tobacco usage or history of. Screenin:12 Abuse screen: Denies threats or abuse. Denies injuries from another. Nutritional ld1 screening: No deficits noted. Tuberculosis screening: No symptoms or risk factors identified. Fall Risk None identified. Assessment: 23:12 Reassessment: See triage assessment. ld1 04/11 01:15 Reassessment: Patient appears in no apparent distress at this time. Patient aware of lp1 waiting for CT results. Vital Signs: 04/10 22:11 BP 114 / 61; Pulse 67; Resp 16; Temp 97.9; Pulse Ox 100% ; Weight 52.16 kg; Height 5 vc1 ft. 6 in. (167.64 cm); Pain 10/10; 23:12 BP 118 / 62; Pulse 65; Resp 16; Pulse Ox 100% on R/A; Pain 7/10; ld1 04/11 01:15 BP 112 / 49; Pulse 60; Resp 16; Pulse Ox 100% on R/A; Pain 8/10; lp1 04/10 22:11 Body Mass Index 18.56 (52.16 kg, 167.64 cm) vc1 ED Course: 04/10 21:30 Patient arrived in ED. ag3 22:00 Marlon Handley PA is PHCP. cp 22:00 Rashaad Jeong MD is Attending Physician. cp 22:12 Triage completed. vc1 22:14 Arm band placed on left wrist. vc1 23:12 Zoie Madsen, SEN is Primary Nurse. ld1 23:12 Patient has correct armband on for positive identification. Placed in gown. Bed in low ld1 position. Call light in reach. Side rails up X2. Pulse ox on. NIBP on. Door closed. Noise minimized. Warm blanket given. 23:12 No provider procedures requiring assistance completed. Inserted saline lock: 20 gauge ld1 in left antecubital area, using aseptic technique. Blood collected. 23:13 Urine Microscopic Only Sent. ld1 04/11 01:06 CT Stone Protocol In Process Unspecified. EDMS 02:12 IV discontinued, No redness/swelling at site. Pressure dressing applied. lp1 Administered Medications: 04/10 23:13 Drug: NS 0.9% 1000 ml Route: IV; Rate: 1 bolus; Site: left antecubital; ld1 04/11 00:30 Follow up: IV Status: Completed infusion; IV Intake: 1000ml lp1 04/10 23:13 Drug: Ketorolac 15 mg Route: IVP; Site: left antecubital; ld1 04/11 00:30 Follow up: Response: No adverse reaction lp1 01:15 Drug: Lidoderm Patch 5 % (700 mg/patch) 1 patches {Note: placed to mid back for pain lp1 relief.} Route: Topical; Site: wound; Medication: 04/10 23:12 VIS not applicable for this client. ld1 Intake: 04/11 00:30 IV: 1000ml; Total: 1000ml. lp1 Outcome: 01:54 Discharge ordered by . snw 02:12 Discharged to home ambulatory. lp1 02:12 Condition: good 02:12 Discharge instructions given to patient, Instructed on discharge instructions, follow up and referral plans. medication usage, Demonstrated understanding of instructions, follow-up care, medications, Prescriptions given X 1. 02:13 Patient left the ED. lp1 Signatures: Dispatcher [employer] EDMS Marily Humphreys, FURNACE BRAZER-C FURNACE BRAZER-Csnw Brooklyn Cherry, RN RN lp1 Marlon Handley PA PA cp Gomez, Alice ag3 Zoie Madsen, SEN RN ld1 Betsey Torres RN RN vc1
[2022-04-11 03:45] VITALS: TEMP 97.9; O2SAT 100
[2022-04-11 03:53] VITALS: BP 112/49
--- NOTE | 2022-04-11 12:26 | RAD REPORT ---
EXAM DESCRIPTION: CT - Stone Protocol - 04/11/2022 6:41 am CLINICAL HISTORY: The patient is 21 years old and is Female; mid back pain TECHNIQUE: Axial computed tomography images of the abdomen and pelvis without intravenous contrast. Sagittal and coronal reformatted images were created and reviewed. This CT exam was performed usi ng one or more of the following dose reduction techniques: automated exposure control, adjustment o f the mA and/or kV according to patient size, and/or use of iterative reconstruction technique. DLP: 495 mGy*cm COMPARISON: None. FINDINGS: LUNG BASES: Lung bases are clear. HEART: Visualized heart is normal. ABDOMEN: LIVER: Unremarkable. GALLBLADDER AND BILE DUCTS: Unremarkable. No calcified stones. No ductal dilation. PANCREAS: Unremarkable. No ductal dilation. SPLEEN: Unremarkable. No splenomegaly. ADRENALS: Unremarkable. No mass. KIDNEYS AND URETERS: Unremarkable. No obstructing stones. No hydronephrosis. STOMACH AND BOWEL: Moderate stool burden. No obstruction. No mucosal thickening. PELVIS: APPENDIX: The appendix is seen and is within normal limits. BLADDER: Bladder is decompressed. No stones. REPRODUCTIVE: Unremarkable as visualized. ABDOMEN and PELVIS: INTRAPERITONEAL SPACE: Unremarkable. No free air. No significant fluid collection. BONES/JOINTS: No acute fracture. No dislocation. SOFT TISSUES: Unremarkable. VASCULATURE: Unremarkable. No abdominal aortic aneurysm. LYMPH NODES: Unremarkable. No enlarged lymph nodes. IMPRESSION: 1. No acute abdominal or pelvic abnormality. No obstructive uropathy. 2. Moderate stool burden. Correlate for constipation. Electronically signed by: Collins Larkin DO 04/11/2022 1:20 AM CDT Due to temporary technical issues with the PACS/Fluency reporting system, reports are being signed by the in house radiologists without review as a courtesy to insure prompt reporting. The interpreting radiologist is fully responsible for the content of the report.
== END 2022-04-11 02:13 | disposition home or self-care (01) ==
LOC: ER 21:25
DX: K59.00 Constipation, unspecified (principal); M54.50 Low back pain, unspecified; Z88.0 Allergy status to penicillin
CPT/HCPCS: 85025; 36415; 81025; 83690; 80053; 76377; 74176; J2001; J7030; 81003; 81015

== ENCOUNTER 2022-11-10 17:12 | Emergency (ER) | payer BC ==
--- OUTSIDE RECORDS SUMMARY | 2022-11-10 17:16 | XMS REPORT | Continuity of Care Document ---
:2000 Author Organization [facility] t Address [address] [place] [address] Care Team Providers Name Role Phone Raheem Riggins MD Primary Care Physician Rhoda Pan Attending Clinician Unavailable Stoney Hahn Attending Clinician Unavailable Gulshan Sandoval Attending Clinician Unavailable Cammy John Attending Clinician Unavailable AMBER JOSHI Attending Clinician Unavailable Stoney Hahn Admitting Clinician Unavailable Physician, No Primary or Family Admitting Clinician [facility] Payers Payer Name Policy Type Policy Number Effective Date Expiration Date S ource Problems Condition Condition Condition Status Onset Resolution Last Treating Co mments Source Name Details Category Date Date Treatment Clinician Date Encounter Encounter Diagnosis Active H ope for for Clinic Nexplanon Nexplanon removal removal Contracept Contracept Diagnosis Active Hope ion ion Clinic management management Allergies, Adverse Reactions, Alerts Allergy Allergy Status Severity Reaction(s) Onset Inactive Treating Comm ents Source Name Type Date Date Clinician Penicill DA Active U HIVES [facility] [place] [facility] DA Active U HIVES [facility] 04-17 [facility] [place] Penic[facility] DA Active U ANAPHYLAXIS [facility] 09-20 [facility] [place] Penicill Propensi Active Rash 2020-08 Method i ins ty to 0-05 st adverse 00:00: Hospita reaction 00 l s to drug penicill Adverse Active hives [facility] in [facility] Social History Social Habit Start Date Stop Date Quantity Comments Source Sex Assigned At [birth year] [facility] 00:00:00 00:00:00 Smoking Status Start Date Stop Date Source Tobacco smoking consumption unknown [facility] Medications Ordered Filled Start Stop Current Ordering Indication Dosage Frequency Signature Comments Components Source Medication Medication Date Date Medication? Clinician (SIG) Name Name Microgestin Microgestin Yes Simrta 1 tablet Hope 09/15 [facility] 00:00: 00 Procedures Procedure Date / Time Performed Performing Clinician [facility] valencia [id number] 2022-04-19 00:00:00 [facility]JA. [facility] [id number] 2022-04-19 00:00:00 MIDJA. [facility] [id number] 2022-04-19 00:00:00 MIDJA. [facility] Plan of Care Planned Activity Planned Date Details Comments Source Future Scheduled 2022-08-19 Screening for [facility] Test 23:59:45 Chlamydia trachomatis (procedure) [code = 367037358] Future Scheduled 2022-08-19 Hepatitis C screening [facility] Test 23:59:45 (procedure) [code = 985794133] Future Scheduled 2022-08-19 Screening for [facility] Test 23:59:45 malignant neoplasm of cervix (procedure) [code = 491968127] Future Scheduled 2022-08-19 COVID-19 VACCINE (3 - Me [facility] Test 23:59:45 Booster for Moderna series) [code = COVID-19 VACCINE (3 - Booster for Moderna series)] Future Scheduled 2022-08-19 INFLUENZA VACCINE [email or web address] Test 23:59:45 [code = INFLUENZA VACCINE] Encounters Start End Encounter Admission Attending Care Care Encounter Source Date/Time Date/Time Type Type Clinicians Facility Department ID 2021-09-21 [id number] [place] 11:02:56 [place], [address] Clinic Rhoda 2022-04-19 2022-04-21 Inpatient EL Jovani [facility] OBPP [id number] [facility] 01:39:00 14:00:00 Stoney [facility] 2022-04-17 2022-04-17 Emergency EM Jovani [facility] ANA [id number] [facility] 21:43:00 22:47:00 Stoney 92 [facility] 2021-11-29 2021-11-29 Emergency EM Lori, [facility] LILA [id number] [facility] 01:38:00 05:45:00 Gulshan 50 [facility] 2021-09-20 2021-09-20 Emergency EM Alvaro [facility] LILA [id number] [facility] 12:55:00 15:18:00 Cammy 43 [facility] 2021-05-31 2021-05-31 Emergency [facility] [id number] [place] [address] 00:00:00 00:00:00 AMBER [address] 2019-09-19 2019-09-19 Outpatient [facility] [id number] [place] 08:30:00 08:30:00 CLINIC [facility] 2018-06-18 2018-06-18 Outpatient [facility] [id number] [place] 14:45:00 14:45:00 CLINIC [facility] Results Test Description Test Time Test Comments Results Result Comments Source CBC W/AUTO DIFF 2022-04-21 10:56:00 Test Item Value Reference Range Interpretation Comme nts WHITE BLOOD CELL (test code = WBC) 19.3 K/mm3 6.5-12.3 H RED BLOOD CELL (test code = RBC) 4.06 M/mm3 3.51-4.69 N HEMOGLOBIN (test code = HGB) 9.3 g/dL 10.1-13.8 L HEMATOCRIT (test code = HCT) 29.8 % 32.5-41.8 L MEAN CELL VOLUME (test code = MCV) 73.4 fL 84.6-96.6 L MEAN CELL HGB (test code = MCH) 22.9 pg 27.3-33.9 L MEAN CELL HGB CONCETRATION (test code = MCHC) 31.2 gm/dL 32.0-34. 2 L RED CELL DISTRIBUTION WIDTH (test code = RDW) 15.1 % 12.2-16. 3 N PLATELET COUNT (test code = PLT) 309 K/mm3 134-363 N MEAN PLATELET VOLUME (test code = MPV) 10.4 fL 9.2-12.7 N NEUTROPHIL % (test code = NT%) 76.3 % 57.9-77.3 N LYMPHOCYTE % (test code = LY%) 13.7 % 14.5-29.7 L MONOCYTE % (test code = MO%) 6.3 % 3.6-10.2 N EOSINOPHIL % (test code = EO%) 2.0 % 0.0-3.0 N BASOPHIL % (test code = BA%) 0.5 % 0.1-0.9 N NEUTROPHIL # (test code = NT#) 14.7 K/mm3 LYMPHOCYTE # (test code = LY#) 2.6 K/mm3 MONOCYTE # (test code = MO#) 1.2 K/mm3 EOSINOPHIL # (test code = EO#) 0.39 K/mm3 BASOPHIL # (test code = BA#) 0.1 K/mm3 RBC MORPHOLOGY REQUIRED (test code = RBCM) NORMAL NORMAL PLATELET MORPHOLOGY REQUIRED (test code = PLTMR) NORMAL EILEEN L [id number] 09:30:00 Test Item Value Reference Range Interpretation Comments GLUBED (test code = GLUBED) 81 mg/dL 65-110 N RUBELLA [id number] 08:50:00 Test Item Value Reference Range Interpretation Comments RUBELLA SCREEN 91.7 IUnit/ml Results >10. 0IUnits/ml (test code = are considered positive RUBSC) inaccordance wi th the CLSI guidelines and based on the WH [employer] International S tandard for Anti-Rubell a serum as anindicator of immune status and a br eakpoint to detect mostseropositiv e persons. HGB [id number] 08:10:00 Test Item Value Reference Range Interpretation Comments HEMOGLOBIN (test code = HGB) 9.8 g/dL 10.1-13.8 L HEMATOCRIT (test code = HCT) 31.0 % 32.5-41.8 L LACTIC [id number] 21:11:00 Test Item Value Reference Range Interpretation Comments LACTIC ACID (test code = LACT) 1.3 MMOL/L 0.5-2.2 N LACTIC [id number] 19:21:00 Test Item Value Reference Range Interpretation Comments LACTIC ACID (test 3.0 MMOL/L 0.5-2.2 H RESULTS CA LLED TO code = LACT) JOE PENG RN.READ BACK & CONFIRME D? Y.BY [id number] 1920.Results ve rified by repeat annita sis CAPILLARY BLOOD [id number] 18:02:00 Test Item Value Reference Range Interpretation Comments CAPILLARY BLOOD GAS PH (test code 7.231 7.35-7.45 L = PHC) CAPILLARY BLOOD GAS PCO2 (test 55.4 mmHg code = PCO2C) CAPILLARY BLOOD GAS PO2 (test code 14.1 mmHg = PO2C) CBG HCO3 (test code = HCO3C) 22.7 meq/L CBG BASE EXCESS (test code = BEC) -5.5 CAPILLARY BLOOD GAS TYPE (test CBLV code = TYPEC) CAPILLARY BLOOD GAS FIO2 (test 21.0 % code = FIO2C) CAPILLARY BLOOD [id number] 18:01:00 Test Item Value Reference Range Interpretation Comments CAPILLARY BLOOD GAS PH (test code 7.155 7.35-7.45 LL = PHC) CAPILLARY BLOOD GAS PCO2 (test 71.6 mmHg code = PCO2C) CAPILLARY BLOOD GAS PO2 (test code 10.8 mmHg = PO2C) CBG HCO3 (test code = HCO3C) 24.7 meq/L CBG BASE EXCESS (test code = BEC) -5.7 CAPILLARY BLOOD GAS TYPE (test CBLA code = TYPEC) CAPILLARY BLOOD GAS FIO2 (test 21.0 % code = FIO2C) LACTIC [id number] 17:30:00 Test Item Value Reference Range Interpretation Comments LACTIC ACID (test 2.2 MMOL/L 0.5-2.2 N RESULTS CA LLED TO code = LACT) FOREIGN FUENTES RN.R EAD BACK & CONFIRME D? Y.BY [id number] 7099.Results ve rified by repeat annita sis COMPREHENSIVE METABOLIC [id number] 17:17:00 Test Item Value Reference Range Interpretation Comments SODIUM (test code = NA) 137 mEq/L 135-145 N POTASSIUM (test code = K) 4.0 mEq/L 3.5-5.0 N CHLORIDE (test code = CL) 103 mEq/L 100-115 N CARBON DIOXIDE (test code = CO2) 25 mEq/L 22-31 N ANION GAP (test code = GAP) 12.60 10-20 N GLUCOSE (test code = GLU) 86 mg/dL 65-110 N BLOOD UREA NITROGEN (test code = 5 mg/dL 7-18 L BUN) GLOMERULAR FILTRATION RATE (test 100 ml/min >60 N code = GFR) CREATININE (test code = CREAT) 0.8 mg/dL 0.5-1.0 N TOTAL PROTEIN (test code = PROT) 7.2 gm/dL 6.3-8.2 N ALBUMIN (test code = ALB) 3.0 gm/dL 3.4-4.8 L CALCIUM (test code = CA) 8.8 mg/dL 8.4-10.2 N BILIRUBIN TOTAL (test code = 0.3 mg/dL 0.2-1.0 N BILT) SGOT/AST (test code = AST) 24 units/L 15-37 N SGPT/ALT (test code = ALT) 22 units/L 12-78 N ALKALINE PHOSPHATASE TOTAL (test 137 units/L 46-116 H code = ALKP) PROTHROMBIN [id number] 16:38:00 Test Item Value Reference Range Interpretation Comments PROTHROMBIN TIME PATIENT (test code 11.1 secs 10.1-12.3 N = PTP) IS PATIENT ON ANTICOAGULANTS ? NINTERNATIONAL NORMAL [id number] 16:38:00 Test Item Value Reference Range Interpretation Comments INTERNATIONAL NORMAL 0.97 The INR is to be used RATIO (test code = INR) only for monitoring oral anticoagulantth erapy. INDICATION INR VALUE 1. Prophylaxis inc luding high risk surge ry 2.0 - 2.52. Deep veno us thrombosis. Pul monary embolism. Atria l fibrillation or bioprosthetic h eart valves 2.0 - 3. 03. Mechanical hear t valves or recurrent sy stemic embolism. 3.0 - 3.5 IS PATIENT ON ANTICOAGULANTS ? NTHROMBOPLASTIN TIME [id number] 16:38:00 Test Item Value Reference Range Interpretation Comments THROMBOPLASTIN TIME PARTIAL (test 29.0 secs 22-38 N code = PTT) IS PATIENT ON ANTICOAGULANTS ? NCBC W/AUTO [id number] 16:12:00 Test Item Value Reference Range Interpretation Comments WHITE BLOOD CELL (test code = WBC) 15.8 K/mm3 6.5-12.3 H RED BLOOD CELL (test code = RBC) 4.76 M/mm3 3.51-4.69 H HEMOGLOBIN (test code = HGB) 11.0 g/dL 10.1-13.8 N HEMATOCRIT (test code = HCT) 35.3 % 32.5-41.8 N MEAN CELL VOLUME (test code = MCV) 74.2 fL 84.6-96.6 L MEAN CELL HGB (test code = MCH) 23.1 pg 27.3-33.9 L MEAN CELL HGB CONCETRATION (test 31.2 gm/dL 32.0-34.2 L code = MCHC) RED CELL DISTRIBUTION WIDTH (test 15.8 % 12.2-16.3 N code = RDW) PLATELET COUNT (test code = PLT) 338 K/mm3 134-363 N MEAN PLATELET VOLUME (test code = 10.1 fL 9.2-12.7 N MPV) NEUTROPHIL % (test code = NT%) 83.5 % 57.9-77.3 H LYMPHOCYTE % (test code = LY%) 8.5 % 14.5-29.7 L MONOCYTE % (test code = MO%) 6.8 % 3.6-10.2 N EOSINOPHIL % (test code = EO%) 0.1 % 0.0-3.0 N BASOPHIL % (test code = BA%) 0.3 % 0.1-0.9 N NEUTROPHIL # (test code = NT#) 13.2 K/mm3 LYMPHOCYTE # (test code = LY#) 1.3 K/mm3 MONOCYTE # (test code = MO#) 1.1 K/mm3 EOSINOPHIL # (test code = EO#) 0.01 K/mm3 BASOPHIL # (test code = BA#) 0.0 K/mm3 RBC MORPHOLOGY REQUIRED (test code NORMAL NORMAL = RBCM) PLATELET MORPHOLOGY REQUIRED (test NORMAL NORMAL code = PLTMR) [id number] 12:56:00 Test Item Value Reference Range Interpretation Comments GLUBED (test code = GLUBED) 129 mg/dL 65-110 H AG HEPATITIS B [id number] 05:35:00 Test Item Value Reference Range Interpretation Comments AG HEPATITIS B SURFACE (test code NONREACTIVE NONREACTIVE = HBSAG) AB HEPATITIS C [id number] 05:35:00 Test Item Value Reference Range Interpretation Comments AB HEPATITIS C (test code = NONREACTIVE NONREACTIVE HCVAB) SIGNAL TO CUTOFF (test code = 0.17 <0.80 N CUTOFF) AB [id number] 05:35:00 Test Item Value Reference Range Interpretation Comments AB TREPONEMA (test code = TREPAB) NONREACTIVE NONREACTIVE AB HIV 1 05:35:00 Test Item Value Reference Range Interpretation Comments AB HIV 1 2 (test NONREACTIVE NONREACTIVE Done by [facility] [employer] code = [id number]) 4th Gen HIV Ag/Ab Combo Screen [id number] 05:27:00 Test Item Value Reference Range Interpretation Comments GLUCOSE (test code = GLU) 109 mg/dL 65-110 N CBC W/AUTO [id number] 04:00:00 Test Item Value Reference Range Interpretation Comments WHITE BLOOD CELL (test code = WBC) 12.7 K/mm3 6.5-12.3 H RED BLOOD CELL (test code = RBC) 4.73 M/mm3 3.51-4.69 H HEMOGLOBIN (test code = HGB) 10.8 g/dL 10.1-13.8 N HEMATOCRIT (test code = HCT) 34.5 % 32.5-41.8 N MEAN CELL VOLUME (test code = MCV) 72.9 fL 84.6-96.6 L MEAN CELL HGB (test code = MCH) 22.8 pg 27.3-33.9 L MEAN CELL HGB CONCETRATION (test 31.3 gm/dL 32.0-34.2 L code = MCHC) RED CELL DISTRIBUTION WIDTH (test 15.8 % 12.2-16.3 N code = RDW) PLATELET COUNT (test code = PLT) 356 K/mm3 134-363 N MEAN PLATELET VOLUME (test code = 9.7 fL 9.2-12.7 N MPV) NEUTROPHIL % (test code = NT%) 73.9 % 57.9-77.3 N LYMPHOCYTE % (test code = LY%) 14.5 % 14.5-29.7 N MONOCYTE % (test code = MO%) 9.2 % 3.6-10.2 N EOSINOPHIL % (test code = EO%) 1.0 % 0.0-3.0 N BASOPHIL % (test code = BA%) 0.3 % 0.1-0.9 N NEUTROPHIL # (test code = NT#) 9.4 K/mm3 LYMPHOCYTE # (test code = LY#) 1.8 K/mm3 MONOCYTE # (test code = MO#) 1.2 K/mm3 EOSINOPHIL # (test code = EO#) 0.13 K/mm3 BASOPHIL # (test code = BA#) 0.0 K/mm3 RBC MORPHOLOGY REQUIRED (test code NORMAL NORMAL = RBCM) PLATELET MORPHOLOGY REQUIRED (test NORMAL NORMAL code = PLTMR) COVID 19 Asymptomatic IH [id number] 03:04:00 Test Item Value Reference Range Interpretation Comments COVID 19 NEGATIVE NEGATIVE This test has b een Asymptomatic IH AG authorize d only for the (test code = detection ofpro teins from COVNONPUIAG) SARS-CoV-2, not for any other viruses orpathogens. Ne gative results should be treated as presumptive andconfirmed wi th a molecular assay , if necessary for patientmanageme nt. Negative result s do not rule out COVID- 19 andshould not b e used as the sole basis for treatment orpat ient management deci sions, including infec tion controldecision s. Negative result s should be considered i n thecontext of a patient's recent exposure s, history and thepresence of clinical signs and symptoms consis tent withCOVID-19. T his test has not been FD A cleared or approved; th e test hasbeen authori zed by FDA under an Emerge ncy Use Authorization(E UA) for use by anumato lolis certified under the CLIA thatmeet the re quirements to perform mode rate, high or waivedcomple xity tests. This reji t is authorized for use at thePoint of Car e (POC), i.e., in patien t care settingsoperati ng under a CLIA Certificat e of Waiver, Certifi keaton ofCompliance, o r Certificate of Accreditation. This test is only authori zed for the duration of thedeclaration that circumstances e xist justifying theauthorizatio n of emergency use o f in vitro diagnostic test sfor detection and/o r diagnosis of CO VID-19 under Lhvmtoq83 4(b)(1) of the Act, 21 U.S .C. 360bbb-3(b)(1), unless theauthorizatio n is terminated or r evoked sooner. URINALYSIS [id number] 03:12:00 Test Item Value Reference Range Interpretation Comments UA COLOR (test code = YELLOW YELLOW COLU) UA APPEARANCE (test code CLEAR CLEAR = APPU) UA GLUCOSE DIPSTICK (test NORMAL MG/DL NORMAL code = DGLUU) UA BILIRUBIN DIPSTICK NEGATIVE MG/DL NEGATIVE (test code = BILU) UA KETONE DIPSTICK (test NEGATIVE MG/DL NEGATIVE code = KETU) UA SPECIFIC GRAVITY (test 1.025 1.003-1.030 N code = SGU) UA BLOOD DIPSTICK (test 25 Ismael/mm3 NEGATIVE A code = MAYA) UA PH DIPSTICK (test code 6.0 5.0-9.0 N = GRACIELA) UA PROTEIN DIPSTICK (test 30 MG/DL NEGATIVE A code = PROU) UA UROBILINIOGEN DIPSTICK NORMAL MG/DL NORMAL (test code = URO) UA NITRITE DIPSTICK (test NEGATIVE NEGATIVE code = MIR) UA LEUKOCYTE ESTERASE NEGATIVE /mm3 NEGATIVE DIPSTICK (test code = LEUU) UA CULTURE NEEDED? (test NO, WBC<10 Criteria Culture Chk code = UACULT) SOURCE OF URINE: CLEAN CATCHUA [id number] 03:12:00 Test Item Value Reference Range Interpretation Comments UA RBC (test code = 0-3 RBC/HPF 0-3 RBCU) UA WBC (test code = 0-3 WBC/HPF 0-5 XWBCU) UA EPITHELIAL CELLS FEW EPI/HPF FEW (test code = EPIU) UA BACTERIA (test RARE NONE code = XBACU) UA HYALINE CAST (test 0-5 See_Comment A [Auto mated message] code = HYALU) The system [employer] generated this result transmitted ref erence range: 0-2/HPF. The reference range was not used to int erpret this result as normal/abnormal . SOURCE OF URINE: CLEAN CATCHDRUGS OF ABUSE SCREEN [id number] 03:12:00 Test Item Value Reference Range Interpretation [...] ng/mL SOURCE OF URINE: CLEAN CATCHBASIC METABOLIC [id number] 02:44:00 Test Item Value Reference Range Interpretation [...] 8.9 MG/DL 8.4-10.2 N CA) HEPATIC FUNCTION [id number] 02:44:00 Test Item Value Reference Range Interpretation Comments TOTAL PROTEIN 8.0 G/DL 6.3-8.2 N [facility] Clinical Diagnostic (test code = has made us mayela re of PROT) newinformation regarding the potential i nterference ofEltrombopag ( a bone marrow stimulan t used to treatthrombocyt onmenia and aplastic anemia ) with specific assays on the Vitros 5600 of which Total Protein is one of thoseassays per formed in our lab.Interfe rence testing perform ed at Ortho determined that Eltrombopag does interfere with Vitros Total Protein asfollowsEltrom bopag Interference fo r Vitros Product Total Protein:======= Eltrombopag Max Observed Av g. BiasConcentrati on Concentration Concentration== ==== 2.5 mg/dl 6.0 g/dl +0.41 +0.34 3.5 mg/dl 6.0 g /dl +0.50 +0.45 5 mg/dl 6 .0 g/dl +0.73 +0.65 2.5 mg/dl 8.0 g/dl +0.44 +0. 41 3.5 mg/dl 8.0 g/dl +0.55 +0.52 5 [...] +0.25mg/dl +0.15mg/dlBuBc 3.5mg/dl Bc/2.8mg/dl +0. 25mg/dl +0.23mg/dl SGOT/AST (test 39 UNITS/L 14-36 H code = AST) SGPT/ALT (test 32 UNITS/L 0-34 N code = ALT) ALKALINE 57 UNITS/L 38-126 N PHOSPHATASE (test code = ALKP) [id number] 02:44:00 Test Item Value Reference Range Interpretation Comments ACETAMINOPHEN (test code = < 10.0 MCG/ML 10-30 L ACET) [id number] 02:44:00 Test Item Value Reference Range Interpretation Comments SALICYLATE (test code = MARGI) < 1.0 MG/DL <2.0 [id number] 02:44:00 Test Item Value Reference Range Interpretation Comments ALCOHOL (test code = ALC) < 10.0 MG/DL <10 HCG SERUM [id number] 02:42:00 Test Item Value Reference Range Interpretation Comments HCG SERUM QUAL (test code = HCGQL) NEGATIVE NEGATIVE CBC W/AUTO [id number] 02:15:00 Test Item Value Reference Range Interpretation [...] K/mm3 0.0-0.1 N NRBC#) - DUP AB/PEL/SC [id number] 14:33:00 [facility] 2000 Sex: F Patient Name: SCOOBY BRUSH Unit No: [id number] EXAMS: CPT CODE: [id number] DUP AB/PEL/SC LTD 95302 ULTRASOUND:- DUP AB/PEL/SC LTD, - US PREG UT TRANSVAGINAL, - US PREG 1ST TRIMTR History: at 7 weeks with lower abdominal pain Comparison: None. B-mode/Johnson scale imaging with color Doppler perfusion imaging and spectral analysis was performed. The uterus measures 8.1 x 5.7 x 6.5 cm. A single gestationis seen within or single rounded gestational sac. [...] weeks. Location: U 19 at 1433 Reported andsigned by: JUJU MIKE MD CC: Cammy John DO Technologist: Ghazala Zapata RDMS(); SN [id number] Date/Tm/Trnsp: 09/20/2021 (1433) [email or web address] Orig Print D/T: S: 09/20/2021 (1436) [facility] [id number] [address] PHYS: [place] [address] : 2000 AGE: 20 SEX: F LOC: TESS PHONE #: [phone] EXAM DATE: 09/20/2021 STATUS: REG ER FAX #: [phone] RADIOLOGY NO: PAGE 1 Signed Report- US PREG UT [id number] 14:33:00 [facility] : 2000 Sex: F Patient Name: SCOOBY BRUSH Unit No: [id number] EXAMS: CPT CODE: [id number] US PREG UT TRANSVAGINAL 99976 ULTRASOUND: - DUP AB/PEL/SC LTD, - US [...] John DO Technologist: Ghazala Zapata RDMS(); SN [id number] Transcrpt Date/Tm/Trnsp: 09/20/2021 (1433) [id number] Orig Print D/T: S: 09/20/2021 (2376) [facility] NAME: SCOOBY BRUSH [id number] [address] PHYS: [place] [address] : 2000 AGE: 20 SEX: F LOC: TESS PHONE #: [phone] EXAM DATE: 09/20/2021 STATUS: REG ER FAX #: [phone] RADIOLOGY NO: PAGE 1 Signed Report- US PREG 1ST TRIMTR 2021-09-20 14:33:00 [facility] : 2000 Sex: F Patient Name: SCOOBY BRUSH Unit No: [id number] EXAMS: CPT CODE: [id number] US PREG 1ST TRIMTR 27208 ULTRASOUND:- DUP AB/PEL/SC LTD, - US PREG [...] cm with normal arterial Doppler flow pattern. Theleft ovary at 3.7 x 2.5 x 2.4 cm contains a 2.7 x 1.8 x 2 cm complex likely hemorrhagic cyst, almost isodense echogenic with the ovarian tissue. Impression: 6 week and 6 day single viable gestation. Small to moderate subchorionic hemorrhage seen with follow-up recommended in the next 1-2 weeks. Location: 19 at 1433 Reported and signed by: JUJU MIKE MD CC: Jeromy Palmer DO; Cammy E Alvaro DO Technologist: Ghazala Zapata RDMS(); SN [id number] Transcrpt Date/Tm/Trnsp: 09/20/2021 (1433) t.[email or web address] Orig Print D/T: S: 09/20/2021 (1436) [facility] NAME: SCOOBY BRUSH [id number] [address] PHYS: ANGELINE - Spencer,Jeromy [address] [place] [address] : 2000 AGE: 20 SEX: F LOC: Z.ERS PHONE #: [phone] EXAM DATE: 09/20/2021 STATUS: REG ER FAX #: [phone] RADIOLOGY NO: PAGE 1 Signed ReportUR HCG [id number] 13:42:00 Test Item Value Reference Range Interpretation Comments UR HCG QUAL (test code = HCGQLU) POSITIVE NEGATIVE URINALYSIS [id number] 13:30:00 Test Item Value Reference Range Interpretation [...]
[2022-11-10 18:35] LABS: Urine Blood Trace-intact (Negative); Urine Glucose Negative (Negative); Urine Protein Negative (Negative); Urine pH 6.5 (5.0-7.0)
[2022-11-10 18:42] LABS: Urine Bacteria <20 /HPF (<20); Urine RBC <5 /HPF (None Seen)
[2022-11-10 19:02] LABS: Hematocrit 36.6 % (36.0-45.0); Lymphocytes % 34.5 % (15.3-44.8); MCV 71.8 fL (80-100)
[2022-11-10 19:20] LABS: Potassium 3.6 mEq/L (3.5-5.1)
--- NOTE | 2022-11-10 20:24 | EDPHYS ---
Physician Documentation [facility] Name: Rose Lucio Age: 21 yrs Sex: Female : 2000 Arrival Date: 11/10/2022 Time: 17:16 Bed 7 Private MD: ED Physician Edgardo Bowers HPI: 11/10 18:33 This 21 yrs old Black Female presents to ER via Ambulatory with complaints of Abdominal snw Cramping, Low Back Pain. 18:33 The patient presents with abdominal pain in the epigastric area, in the upper abdomen. snw Onset: The symptoms/episode began/occurred acutely. The symptoms do not radiate. Associated signs and symptoms: Pertinent positives: nausea. The symptoms are described as crampy. Severity of pain: At its worst the pain was very mild. The patient has not experienced similar symptoms in the past. The patient has not recently seen a physician. Historical: - Allergies: 17:25 PENICILLINS; hb - Home Meds: 17:25 None [Active]; hb - PMHx: 17:25 None; hb - PSHx: 17:25 Tonsillectomy; hb - Immunization history:: Adult Immunizations up to date. - Social history:: Smoking status: Patient denies any tobacco usage or history of. ROS: 18:31 Constitutional: Negative for fever, chills, and weight loss, Eyes: Negative for injury, snw pain, redness, and discharge, ENT: Negative for injury, pain, and discharge, Neck: Negative for injury, pain, and swelling, Cardiovascular: Negative for chest pain, palpitations, and edema, Respiratory: Negative for shortness of breath, cough, wheezing, and pleuritic chest pain, Back: Negative for injury and pain, : Negative for injury, bleeding, discharge, and swelling, MS/Extremity: Negative for injury and deformity, Skin: Negative for injury, rash, and discoloration, Neuro: Negative for headache, weakness, numbness, tingling, and seizure, Psych: Negative for depression, anxiety, suicide ideation, homicidal ideation, and hallucinations. 18:31 Abdomen/GI: Positive for abdominal pain, nausea, abdominal cramps, of the epigastric area, right upper quadrant and left upper quadrant. Exam: 18:31 Constitutional: This is a well developed, well nourished patient who is awake, alert, snw and in no acute distress. Head/Face: Normocephalic, atraumatic. Eyes: Pupils equal round and reactive to light, extra-ocular motions intact. Lids and lashes normal. Conjunctiva and sclera are non-icteric and not injected. Cornea within normal limits. Periorbital areas with no swelling, redness, or edema. ENT: Nares patent. No nasal discharge, no septal abnormalities noted. Tympanic membranes are normal and external auditory canals are clear. Oropharynx with no redness, swelling, or masses, exudates, or evidence of obstruction, uvula midline. Mucous membranes moist. Neck: Trachea midline, no thyromegaly or masses palpated, and no cervical lymphadenopathy. Supple, full range of motion without nuchal rigidity, or vertebral point tenderness. No Meningismus. Chest/axilla: Normal chest wall appearance and motion. Nontender with no deformity. No lesions are appreciated. Cardiovascular: Regular rate and rhythm with a normal S1 and S2. No gallops, murmurs, or rubs. Normal PMI, no JVD. No pulse deficits. Respiratory: Lungs have equal breath sounds bilaterally, clear to auscultation and percussion. No rales, rhonchi or wheezes noted. No increased work of breathing, no retractions or nasal flaring. Back: No spinal tenderness. No costovertebral tenderness. Full range of motion. Skin: Warm, dry with normal turgor. Normal color with no rashes, no lesions, and no evidence of cellulitis. MS/ Extremity: Pulses equal, no cyanosis. Neurovascular intact. Full, normal range of motion. Neuro: Awake and alert, GCS 15, oriented to person, place, time, and situation. Cranial nerves II-XII grossly intact. Motor strength 5/5 in all extremities. Sensory grossly intact. Cerebellar exam normal. Normal gait. Psych: Awake, alert, with orientation to person, place and time. Behavior, mood, and affect are within normal limits. 18:31 Abdomen/GI: Inspection: abdomen appears normal, Bowel sounds: normal, Palpation: mild abdominal tenderness, in the epigastric area. Vital Signs: 17:24 BP 143 / 78; Pulse 71; Resp 16; Temp 97.4; Pulse Ox 100% on R/A; Weight 63.5 kg; Height hb 5 ft. 5 in. ; Pain 5/10; 17:24 Body Mass Index 23.30 (63.50 kg, 165.1 cm) hb 17:24 Pain Scale: Adult hb MDM: 18:10 Patient medically screened. snw 11/10 17:56 Order name: Urine Culture snw 11/10 17:56 Order name: Urine Dipstick-Ancillary (obtain specimen); Complete Time: 18:39 snw 11/10 17:56 Order name: Urine Test (obtain specimen); Complete Time: 18:39 snw 11/10 18:36 Order name: NPO; Complete Time: 18:44 snw 11/10 18:36 Order name: Urine Dipstick-Ancillary; Complete Time: 18:37 EDMS 11/10 17:56 Order name: Urine Microscopic Only; Complete Time: 18:45 snw 11/10 18:36 Order name: Labs collected and sent; Complete Time: 18:52 snw 11/10 18:36 Order name: CBC with Diff; Complete Time: 19:03 snw 11/10 18:48 Order name: Urine --Ancillary (enter results); Complete Time: 19:03 ss 11/10 19:04 Order name: Add On-Lab snw 11/10 18:36 Order name: Basic Metabolic Panel; Complete Time: 19:31 snw 11/10 18:36 Order name: Abo/rh Typing; Complete Time: 20:02 snw 11/10 19:07 Order name: HCG, Quantitative; Complete Time: 19:31 EDMS Administered Medications: No medications were administered Disposition Summary: 11/10/22 20:23 Discharge Ordered Location: Home snw Condition: Stable snw Diagnosis - state, incidental snw - Upper abdominal pain, unspecified snw Followup: snw - With: Emergency Department - When: As needed - Reason: Worsening of condition Followup: snw - With: Private Physician - When: 2 - 3 days - Reason: Recheck today's complaints, Continuance of care, Re-evaluation by your physician Forms: - Medication Reconciliation Form snw - Thank You Letter snw - Antibiotic Education snw - Prescription Opioid Use snw Signatures: Dispatcher [employer] EDMS Marily Humphreys FNP-C RAW MATERIAL PLANNER-Csnw Ana Aragon RN RN hb
--- NOTE | 2022-11-10 20:24 | ER ---
Nurse's Notes [facility] Name: Rose Lucio Age: 21 yrs Sex: Female : 2000 Arrival Date: 11/10/2022 Time: 17:16 Bed 7 Private MD: Diagnosis: state, incidental;Upper abdominal pain, unspecified Presentation: 11/10 17:24 Chief complaint: Sharp intermittent upper abdominal pain and nausea x 3 days. Denies hb fever/diarrhea. Coronavirus screen: At this time, the client does not indicate any symptoms associated with coronavirus-19. Ebola Screen: No symptoms or risks identified at this time. Initial Sepsis Screen: Does the patient meet any 2 criteria? No. Patient's initial sepsis screen is negative. Does the patient have a suspected source of infection? No. Patient's initial sepsis screen is negative. Risk Assessment: Do you want to hurt yourself or someone else? Patient reports no desire to harm self or others. Onset of symptoms was November 07, 2022. 17:24 Method Of Arrival: Ambulatory hb 17:24 Acuity: VALENTINO 3 hb Triage Assessment: 17:25 General: Appears in no apparent distress. Behavior is calm, cooperative. Pain: Pain hb currently is 5 out of 10 on a pain scale. at worst was 8 out of 10 on a pain scale. Neuro: Level of Consciousness is awake, alert, obeys commands, Oriented to person, place, time, situation. Cardiovascular: Patient's skin is warm and dry. Respiratory: Respiratory effort is even, unlabored, Respiratory pattern is regular, symmetrical. GI: Reports upper abdominal pain, nausea. Historical: - Allergies: 17:25 PENICILLINS; hb - Home Meds: 17:25 None [Active]; hb - PMHx: 17:25 None; hb - PSHx: 17:25 Tonsillectomy; hb - Immunization history:: Adult Immunizations up to date. - Social history:: Smoking status: Patient denies any tobacco usage or history of. Screenin:09 [facility] ED Fall Risk Assessment (Adult) Score/Fall Risk Level 0 - 2 = Low Risk ll1 Oriented to surroundings, Maintained a safe environment, Educated pt \T\ family on fall prevention, incl call for assistance when getting out of bed, Hourly rounding (assess needs \T\ fall precautionary measures) done. Abuse screen: Denies threats or abuse. Nutritional screening: No deficits noted. Tuberculosis screening: No symptoms or risk factors identified. Assessment: 18:53 Reassessment: No changes from previously documented assessment. Patient and/or family ll1 updated on plan of care and expected duration. Pain level reassessed. Patient is alert, oriented x 3, equal unlabored respirations, skin warm/dry/pink. 19:09 Reassessment: No changes from previously documented assessment. Patient and/or family ll1 updated on plan of care and expected duration. Pain level reassessed. Patient is alert, oriented x 3, equal unlabored respirations, skin warm/dry/pink. Vital Signs: 17:24 BP 143 / 78; Pulse 71; Resp 16; Temp 97.4; Pulse Ox 100% on R/A; Weight 63.5 kg; Height hb 5 ft. 5 in. ; Pain 5/10; 17:24 Body Mass Index 23.30 (63.50 kg, 165.1 cm) hb 17:24 Pain Scale: Adult hb ED Course: 17:16 Patient arrived in ED. [id number] 17:20 Marily Humphreys FNP-C is [facility]. snw 17:20 Edgardo Bowers MD is Attending Physician. snw 17:25 Triage completed. hb 17:25 Arm band placed on. hb 18:42 Lizandro Ocampo, SEN is Primary Nurse. ll1 18:52 Inserted saline lock: 20 gauge in right antecubital area, using aseptic technique. ll1 Blood collected. 19:10 Patient has correct armband on for positive identification. Bed in low position. Call ll1 light in reach. Cardiac monitoring not applicable on this patient. Administered Medications: No medications were administered Medication: 19:10 VIS not applicable for this client. ll1 Outcome: 20:23 Discharge ordered by . snw Signatures: Marily Humphreys FNP-C LOT TECHNICIAN-Csnw Ana Aragon RN RN hb Lizandro Ocampo RN RN ll1 Hodan Chung [id number]
[2022-11-10 23:56] VITALS: BP 143/78; TEMP 97.4; O2SAT 100
== END 2022-11-10 20:33 | disposition home or self-care (01) ==
LOC: ER 17:12
DX: R10.13 Epigastric pain (principal); Z33.1 Pregnant state, incidental; Z88.0 Allergy status to penicillin
CPT/HCPCS: 36415; 80048; 81003; 81015; 81025; 84702; 85025; 86900; 86901; 87086; 87088; 99283

== ENCOUNTER 2023-03-03 16:28 | Emergency (ER) | payer BC ==
--- OUTSIDE RECORDS SUMMARY | 2023-03-03 16:32 | XMS REPORT | Continuity of Care Document ---
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 presents with lower abdom inal cramps after testing positive for in the beginning of august. TV US demonstrates 6wk 6day gestation and subchorionic hemorrhage. Pt in no distres s and physical exam was negative. Pt advised to f/u with PCP and OBGYN to establish care. Pt underst ood course of hospital stay. Vitals stable for dc. No questions or concerns f rom pt. Patient Discharge Departure Vital Signs/Condition Vital Signs First Documented: Result Date Time Pulse Ox 99 09/20 1301 B/P 121/73 09/20 1301 B/P Mean 89 09/20 1301 O2 Delivery Room air 09/20 1301 Temp 36.9 09/20 1301 Pulse 78 09/20 1301 Resp 18 09/20 1301 Last Documented: Result Date Time Pulse Ox 99 09/20 1301 B/P 121/73 09/20 1301 B/P Mean 89 09/20 1301 O2 Delivery Room air 09/20 1301 Temp 36.9 09/20 1301 Pulse 78 09/20 1301 Resp 18 09/20 1301 All vital signs available at the time of this en try have been reviewed. Condition Stable Disposition Decision Discharge )( Discharged to Home Yes )( Time 151 )( Date 09/20/21 Discharge/Care Plan Counseled Regarding Diagnosis, Lab results, Imag ing studies (Auto) Prescriptions Current Visit Scripts No Known Home Medications Patient Instructions ED , New Dx Referrals Early [facility] - [facility] Only Discharge Note I have spoken with the patie nt and/or caregivers. I have explained the patient's condition, diagnoses and raquel atment plan based on the information available to me at this time. I have answered the patient's and/ or caregiver's questions and addressed any concerns. The patient and/or careg patrick have as good an understanding of the patient 's diagnosis, condition and treatment plan as can be expected at this point. The vital signs have bee n stable. The patient's condition is stable and appr opriate for discharge from the emergency department. The patient will pursue further outpatient evalu ation with the primary care physician or other designated or consulting phys ician as outlined in the discharge instructions. The patient and/or caregivers are agreeable to this plan of care and follow-up instructions have been exp lained in detail. The patient and/or caregivers have received these instructio ns in written format and have expressed an understanding of the discharge inst ructions. The patient and/or caregivers are aware that any significant change in condition or worsening of symptoms should prompt an immediate return to [facility] or the closest emergency department or a call to 911. Cammy John 09/20/21 1851: HPI-Preg Under 20 Weeks General Confirmed Patient Yes Patient Type New patient Presentation Context: Preg test pending Hx Obtained From Patient Onset Occurred Weeks ago Symptom Duration Since onset Progression since Onset Unchanged Location Suprapubic Quality Cramping Radiation No: None. Severity: Onset Pain level 4 out of 10 Associated with Denies: Blood in urine, Hematuria, Urinary frequ ency, UTI symptoms, Vaginal bleeding, Vaginal discharge, Vomiting. Risk-Preg Under 20 Weeks Risk Stratification Ectopic Risk factors reviewed, No risk factors Past Medical History - Adult Review of Nursing Notes Triage notes reviewed Additional Medical History Denies past medical history Additional Surgical History Denies past surgeries Alcohol Use Denies EtOH use Drug Use Denies recreational drugs Ambulatory Status Independent Physical Exam Vital Signs Review of Vital Signs Reviewed, Vital signs norm al Interpretation Diagnostics Lab Results Interpretation Considerations Independ review imaging, Reviewed prior records Point of Care Testing Pulse Oximetry Pulse Ox % 100 On: Room air Interpretation Interpreted by me, Pulse oximet ry normal Re-Evaluation MDM Differential Diagnosis Differential Diagnosis , threatened, BCP breakthrough bleeding, Discomfort of , Ectopic , Endo metriosis, Intrauterine , Miscarriage, Molar , Urinary tract infection Patient Discharge Departure Clinical Impression Clinical Impression Primary Impression: Abdominal pain during pregna ncy Secondary Impressions: First trimester , Subchorionic hemorrhage in first trimester Quality Measures BP F/U for HTN Referred for BP f/u < 4wk US in Preg w/AP/VB Trans-abd/vag US done, Preg l ocation documented Preg Test for Women w/Abd Pa in Female age 14-50, Complaint of abdominal pn, Any preg test ordered Supervising Physician Note Resident Saw Pt This patient was seen by a resident. I have pers onally seen the patient, performed the critical or parekh portions o f the service, and participated in the management of the patient. I have review ed and agree with the resident's note, and I have reviewed all labs , ECGs, and imaging studies or reports. I agree with this resident's findings, exam and plan. HPI: THe patient is a 20 year old female with no previous medical history who presents to the Emergency department wit h a chief complaint of abdominal pain. Onset was three weeks ago. Jones weston describes the pain as cramping and states her pain is located in the suprapubic area. The pain is currently a 4/10 in severity. The pain is consta nt and does not radiate. She reports three days ago she took a test an d it was positive. Her last menstrual period was on 07/27/2021. She denies fever, vaginal discharge, dysuria, urinary frequency, hematuria. Physical Examination: Constitutional: The patient is well appearing. N on toxic appearing. No acute distress. Head: Atraumatic. Normocephalic. Neck: Supple. Full range of motion is intact. Eyes: Pupils are equal, round and reactive to Li ght. Extraocular movement is intact. No scleral icterus. Oropharynx: Airway is patent. Moist mucus membra hawk. Cardiac: Regular rate. Miriam l rhythm. Normal S1 and S2. There are strong radial pulses bilaterally. Respiratory: Lungs are clear to auscultation annette aterally. No respiratory distress is present. Abdomen: Soft. Non tender. Non distended. Musculoskeletal: Moves all four extremities with out difficulty. Normal inspection of all four extremities. Skin: Warm. Dry. Capillary r efill is less than 2 seconds. There is no jaundice, cyanosis or pallor. Neurological: Patient is alert. Oriented x 3. Sp eech is normal. There are no focal neurologic deficits. Psychiatric: Mood is appropriate. Affect is norm al. Thought content is normal and appropriate. MDM: The patient is a 20 year old female with no prev ious medical history who presents to the Emergency department with a kathy f complaint of abdominal pain and a positive test at home. History a s above. Vitals are within normal limits. Differential diagnosis as documented above. A urinalysis, urine and pelvic ultrasound was obtained for further evaluation. Urinalysis results and ultrasound was personally reviewed. Urinalysis was negative for infection and positive for pregnanc y. Ultrasound revealed an intrauterine of approximately 6 weeks and 6 days, no evidence of ectopic and a mild to moderate sub chorionic hemorrhage. Patient was informed of her results. She has been instructed to follow up with OB in two weeks and has been given OB Contact information. At this time, she is stable for discharge home. Strict return precautions were elio back. She verbalizes understanding and is agreeable with this plan. S he was discharged in stable condition. Electronically Signed by Jeromy Palmer DO R1 on at 1554 Electronically Signed by Cammy John DO on 0 09/20/21 at 5080 RPT #:[id number] END OF REPORT
[2023-03-03] MEDS ORDERED: ACETAMINOPHEN 500 MG TAB ONE (16:54)
[2023-03-03 17:40] LABS: SARS-CoV-2 Antigen Rapid Res Negative (Negative)
--- NOTE | 2023-03-03 18:45 | ER ---
Nurse's Notes [facility] Name: Rose Lucio Age: 22 yrs Sex: Female : 2000 Arrival Date: 03/03/2023 Time: 16:28 Bed 13 Private MD: Diagnosis: Viral infection, unspecified Presentation: 03/03 16:34 Chief complaint: Patient states: Body aches, sore throat, cough for 3 days. Fever today nj1 100.9. Has not taken any OTC meds because she is 20 weeks . Sister and nephew positive for COVID. Coronavirus screen: Vaccine status: Patient reports receiving the 2nd dose of the covid vaccine. Ebola Screen: Patient denies travel to an Ebola-affected area in the 21 days before illness onset. Initial Sepsis Screen: Does the patient meet any 2 criteria? HR > 90 bpm. No. Patient's initial sepsis screen is negative. Does the patient have a suspected source of infection? No. Patient's initial sepsis screen is negative. Risk Assessment: Do you want to hurt yourself or someone else? Patient reports no desire to harm self or others. Onset of symptoms was March 01, 2023. 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 - Social history:: Smoking status: Patient denies any tobacco usage or history of. Screenin:53 [facility] ED Fall Risk Assessment (Adult) History of falling in the last 3 months, kc6 including since admission No falls in past 3 months (0 pts) Confusion or Disorientation No (0 pts) Intoxicated or Sedated No (0 pts) Impaired Gait No (0 pts) Mobility Assist Device Used No (0 pt) Altered Elimination No (0 pt) Score/Fall Risk Level 0 - 2 = Low Risk Oriented to surroundings, Maintained a safe environment, Educated pt \\T\\ family on fall prevention, incl call for assistance when getting out of bed, Assessed \\T\\ reinforced patient's understanding of fall precautions, Hourly rounding (assess needs \\T\\ fall precautionary measures) done. Abuse screen: Denies threats or abuse. Denies injuries from another. Nutritional screening: No deficits noted. Tuberculosis screening: No symptoms or risk factors identified. Assessment: 16:54 General: Appears in no apparent distress. comfortable, ill, Behavior is calm, kc6 cooperative, appropriate for age. Pain: Complains of pain in "sore throat", body aches. Neuro: Level of Consciousness is awake, alert, obeys commands, Oriented to person, place, time, situation, Appropriate for age. Cardiovascular: Capillary refill < 3 seconds. Respiratory: Reports cough that is Airway is patent Trachea midline Respiratory effort is even, unlabored, Respiratory pattern is regular, symmetrical. GI: No signs and/or symptoms were reported involving the gastrointestinal system. : No signs and/or symptoms were reported regarding the genitourinary system. EENT: Throat is reddened bilaterally with gag reflex present. Derm: No signs and/or symptoms reported regarding the dermatologic system. Skin is intact, is healthy with good turgor, Skin is pink, warm \\T\\ dry. Musculoskeletal: No signs and/or symptoms reported regarding the musculoskeletal system. Circulation, motion, and sensation intact. Capillary refill < 3 seconds, Range of motion: intact in all extremities. 17:46 Reassessment: Patient appears in no apparent distress at this time. No changes from kc6 previously documented assessment. Patient and/or family updated on plan of care and expected duration. Pain level reassessed. Patient is alert, oriented x 3, equal unlabored respirations, skin warm/dry/pink. 18:46 Reassessment: Patient appears in no apparent distress at this time. No changes from kc6 previously documented assessment. Patient and/or family updated on plan of care and expected duration. Pain level reassessed. Patient is alert, oriented x 3, equal unlabored respirations, skin warm/dry/pink. Vital Signs: 16:34 BP 143 / 71; Pulse 112; Resp 18; Temp 100.1; Pulse Ox 100% on R/A; Weight 79.38 kg; nj1 Height 5 ft. 6 in. ; Pain 8/10; 17:14 BP 121 / 76; Pulse 106; Resp 18 S; Pulse Ox 99% on R/A; kc6 18:03 BP 125 / 70; Pulse 93; Resp 16 S; Temp 97.8(O); Pulse Ox 100% on R/A; kc6 16:34 Body Mass Index 28.25 (79.38 kg, 167.64 cm) nj1 16:34 Pain Scale: Adult nj1 ED Course: 16:29 Patient arrived in ED. im 16:30 [facility] sb4 16:30 Marlon Mcgovern MD is Attending Physician. sb4 16:36 Triage completed. nj1 16:37 Arm band placed on right wrist. nj1 16:38 Nubia Terry, RN is Primary Nurse. kc6 16:53 Patient has correct armband on for positive identification. Bed in low position. Call kc6 light in reach. Side rails up X 1. Adult w/ patient. 18:18 SARS-COV-2 Antigen Rapid Sent. sb4 19:08 No provider procedures requiring assistance completed. Patient did not have IV access kc6 during this emergency room visit. Administered Medications: 16:53 Drug: Acetaminophen PO 1000 mg Route: PO; kc6 19:08 Follow up: Response: No adverse reaction; Temperature is decreased kc6 Medication: 19:09 VIS not applicable for this client. kc6 Outcome: 18:45 Discharge ordered by . sb4 19:09 Discharged to home ambulatory, with family. kc6 19:09 Condition: stable 19:09 Discharge instructions given to patient, Instructed on discharge instructions, follow up and referral plans. Demonstrated understanding of instructions, follow-up care. 19:09 Patient left the ED. kc6 Signatures: Nubia Terry RN RN kc6 Lety Hanley PA-C PA-C sb4 Miriam Osorio RN RN nj1 Francie Morel im
--- NOTE | 2023-03-03 18:45 | EDPHYS ---
Physician Documentation [facility] Name: Rose Lucio Age: 22 yrs Sex: Female : 2000 Arrival Date: 03/03/2023 Time: 16:28 Bed 13 Private MD: ED Physician Marlon Mcgovern HPI: 03/03 16:43 This 22 yrs old Black Female presents to ER via Ambulatory with complaints of Flu sb4 Symptoms. 16:43 Onset: The symptoms/episode began/occurred 3 day(s) ago. Associated signs and symptoms: sb4 Pertinent positives: congestion, cough, fever, sore throat, Pertinent negatives: abdominal pain, chest pain, diarrhea, vomiting, wheezing. Modifying factors:. 22 year old female 20 weeks presents with complaints of cough, sore throat, and body aches for 3 days and fever that started today. reports tmax of 100.9. She states she has not been taking any OTC medications due to her . She has had care. Reports sick contacts- sister and nephew covid+. 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 - Social history:: Smoking status: Patient denies any tobacco usage or history of. ROS: 16:43 Cardiovascular: Negative for chest pain, palpitations, and edema, Respiratory: Negative sb4 for shortness of breath, cough, wheezing, and pleuritic chest pain, Skin: Negative for injury, rash, and discoloration. 16:43 Constitutional: Positive for body aches, fever. 16:43 ENT: Positive for sore throat, Negative for nasal discharge, sinus congestion, sinus pain, difficulty handling secretions. Exam: 16:43 Constitutional: This is a well developed, well nourished patient who is awake, alert, sb4 and in no acute distress. Head/Face: Normocephalic, atraumatic. Eyes: Extra-ocular motions intact. Periorbital areas with no swelling, redness, or edema. Cardiovascular: Regular rate and rhythm with a normal S1 and S2. Respiratory: Lungs have equal breath sounds bilaterally, clear to auscultation and percussion. No rales, rhonchi or wheezes noted. No increased work of breathing, no retractions or nasal flaring. Skin: Warm, dry with normal turgor. Normal color with no rashes, no lesions, and no evidence of cellulitis. MS/ Extremity: Pulses equal, no cyanosis. Neurovascular intact. Full, normal range of motion. Neuro: Awake and alert, GCS 15, oriented to person, place, time, and situation. Cranial nerves II-XII grossly intact. Motor strength 5/5 in all extremities. Sensory grossly intact. Cerebellar exam normal. Normal gait. 16:43 ENT: Exam is negative for TM abnormalities, epistaxis, peritonsillar abscess abnormal breath odor, Posterior pharynx: erythema, that is moderate. Vital Signs: 16:34 BP 143 / 71; Pulse 112; Resp 18; Temp 100.1; Pulse Ox 100% on R/A; Weight 79.38 kg; nj1 Height 5 ft. 6 in. ; Pain 8/10; 17:14 BP 121 / 76; Pulse 106; Resp 18 S; Pulse Ox 99% on R/A; kc6 18:03 BP 125 / 70; Pulse 93; Resp 16 S; Temp 97.8(O); Pulse Ox 100% on R/A; kc6 16:34 Body Mass Index 28.25 (79.38 kg, 167.64 cm) nj1 16:34 Pain Scale: Adult nj1 MDM: 16:33 Patient medically screened. sb4 16:43 Differential diagnosis: viral Infection, bacterial infection, URI, bronchitis, covid, sb4 flu, strep, tonsilitis. 18:52 Data reviewed: vital signs, nurses notes, lab test result(s), and as a result, I will sb4 discharge patient. I considered the following discharge prescriptions or medication management in the emergency department Antibiotics: At this time antibiotics are not recommended, Antivirals: At this time, antivirals are not recommended. Counseling: I had a detailed discussion with the patient and/or guardian regarding: the historical points, exam findings, and any diagnostic results supporting the discharge/admit diagnosis, lab results, to return to the emergency department if symptoms worsen or persist or if there are any questions or concerns that arise at home. Medication response: acetaminophen administration has normalized the patient's temperature. Special discussion: I discussed with the patient/guardian in detail that at this point there is no indication for admission to the hospital. It is understood, however, that if the symptoms persist or worsen the patient needs to return immediately for re-evaluation. I discussed with the patient/guardian that the patient's current presentation does not indicate dosing of antibiotics. They should follow-up with their primary care provider and return if the symptoms persist or progress. 03/03 16:43 Order name: SARS-COV-2 Antigen Rapid sb4 03/03 17:16 Order name: SARS-COV-2 Antigen Rapid; Complete Time: 17:47 EDMS 03/03 17:16 Order name: Influenza Screen (A ; Complete Time: 17:53 EDMS 03/03 17:16 Order name: Group A Streptococcus Rapid Sc EDMS 03/03 18:59 Order name: Throat Culture EDMS Administered Medications: 16:53 Drug: Acetaminophen PO 1000 mg Route: PO; kc6 19:08 Follow up: Response: No adverse reaction; Temperature is decreased kc6 Disposition Summary: 03/03/23 18:45 Discharge Ordered Location: Home sb4 Problem: an ongoing problem sb4 Symptoms: have improved sb4 Condition: Stable sb4 Diagnosis - Viral infection, unspecified sb4 Followup: sb4 - With: Private Physician - When: As needed - Reason: Recheck today's complaints, Continuance of care, Re-evaluation by your physician Discharge Instructions: - Discharge Summary Sheet sb4 - Viral Illness, Adult sb4 Forms: - Medication Reconciliation Form sb4 - Thank You Letter sb4 - Antibiotic Education sb4 - Prescription Opioid Use sb4 - [email or web address] sb4 Signatures: Dispatcher [employer] EDMS Nubia Terry, RN RN kc6 Lety Hanley PA-C PA-C sb4 Miriam Osorio RN RN nj1 Corrections: (The following items were deleted from the chart) 17:35 17:13 Chest For Pe Angio ordered. EDMS EDMS 17:36 17:13 Chest Single View ordered. EDMS EDMS
[2023-03-03 19:16] VITALS: BP 125/70; TEMP 97.8; O2SAT 100
== END 2023-03-03 19:09 | disposition home or self-care (01) ==
LOC: ER 16:28
DX: B34.9 Viral infection, unspecified (principal); Z20.822 Contact with and (suspected) exposure to COVID-19
CPT/HCPCS: 36415; 87070; 87081; 87804; 87811; 99283

== ENCOUNTER 2024-02-27 18:30 | Emergency (ER) | payer BC ==
[2024-02-27 20:37] LABS: Specific Gravity > 1.030 (1.005-1.030)
[2024-02-27 20:42] LABS: Specific Gravity > 1.030 (1.005-1.030); Urine Bacteria <20 /HPF (<20); Urine Bilirubin NEGATIVE (Negative); Urine Blood Trace (Negative); Urine Clarity Extremely Turbid (Clear); Urine Color Light-Yellow (Yellow); Urine Culture Reflex Order NOT NEEDED; Urine Glucose NEGATIVE (Negative); Urine Ketones NEGATIVE (Negative); Urine Microscopic Reflex YN ORDER UMIC; Urine Mucus Slight /HPF (None Seen); Urine Nitrite NEGATIVE (Negative); Urine Protein TRACE (Negative); Urine Urobilinogen Normal (Normal)
[2024-02-27 20:46] LABS: Absolute Basophils 0.1 K/uL (0-0.5); Absolute Eosinophils 0.3 K/uL (0-0.5); Absolute Lymphocytes (CBC) 2.8 K/uL (0.7-4.9); Absolute Monocytes 1.2 K/uL (0.1-1.3); Absolute Neutrophil 10.8 K/uL (1.8-8.0); Basophils % 0.5 % (0-1.3); Eosinophils % 1.7 % (0-4.4); Hematocrit 37.6 % (36.0-45.0); Lymphocytes % 18.5 % (15.3-44.8); MCH 22.8 pg (27.0-35.0); MCHC 31.8 g/dL (32.0-36.0); MCV 71.8 fL (80-100); MPV 8.4 fL (7.6-11.3); Monocytes % 7.8 % (3.3-12.3); Neutrophils % 71.5 % (41.7-73.7); Nucleated Red Blood Cells % 0.2 % (0-0); Platelets 380 thou/uL (152-406); RBC Red Blood Cell Count 5.25 M/uL (3.86-4.86); Red Cell Distribution Width 17.1 % (12.1-15.2)
[2024-02-27 21:02] LABS: Anion Gap 7.9 mEq/L (5.0-15.0)
[2024-02-27 21:03] LABS: Potassium 3.9 mEq/L (3.5-5.1)
[2024-02-27] MEDS ORDERED: ACETAMINOPHEN 500 MG TAB ONE (21:51)
[2024-02-27] MEDS ORDERED: ONDANSETRON 4 MG (ODT) TAB ONE (21:51)
--- NOTE | 2024-02-27 22:13 | RAD REPORT ---
EXAM DESCRIPTION: US - Transvaginal OB - 02/27/2024 10:03 pm CLINICAL HISTORY: ABD CRAMPING, COMPARISON: <Comparisons> FINDINGS: A single gestational sac is seen within the uterus. The shape of the sac is within normal limits for gestational age. Within the sac is a single pole with crown-rump length of 5.2 cm, c orrelating to estimated gestational age of 11 weeks 6 days. Estimated date of delivery is 09/13/2024. Heart rate is 159 BPM. The placenta is not yet developed due to early gestational age. The maternal adnexa and right ovary are within normal limits. Normal Doppler blood flow was demonstra ely to the right ovary. Left ovary was obscured by bowel gas. IMPRESSION: Single live early intrauterine gestation with estimated gestational age of 11 weeks 6 da ys, CELESTE 09/13/2024.
--- NOTE | 2024-02-27 22:26 | ER ---
Nurse's Notes [facility] Name: Rose Lucio Age: 23 yrs Sex: Female : 2000 Arrival Date: 02/27/2024 Time: 18:30 Bed 8 Private MD: Diagnosis: related conditions, unspecified, first trimester;Lower abdominal pain, unspecified Presentation: 02/26 19:09 Chief complaint: Patient states: CRAMPING X 3 DAYS. Coronavirus screen: Client db denies travel out of the [place] in the last 14 days. At this time, the client does not indicate any symptoms associated with coronavirus-19. Ebola Screen: Patient negative for fever greater than or equal to 101.5 degrees Fahrenheit, and additional compatible Ebola Virus Disease symptoms Patient denies exposure to infectious person. Patient denies travel to an Ebola-affected area in the 21 days before illness onset. No symptoms or risks identified at this time. Initial Sepsis Screen: Does the patient meet any 2 criteria? No. Patient's initial sepsis screen is negative. Does the patient have a suspected source of infection? No. Patient's initial sepsis screen is negative. Risk Assessment: Do you want to hurt yourself or someone else? Patient reports no desire to harm self or others. Onset of symptoms was February 27, 2024. 19:09 Method Of Arrival: Ambulatory db 19:09 Acuity: VALENTINO 3 db Triage Assessment: 19:11 General: Appears in no apparent distress. comfortable, Behavior is calm, cooperative. db Pain: Complains of pain in abdomen. GI: Reports cramping. 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 - Infectious Disease History:: Denies. - Social history:: Smoking status: Patient denies any tobacco usage or history of. Screenin:18 [facility] ED Fall Risk Assessment (Adult) History of falling in the last 3 months, kd3 including since admission No falls in past 3 months (0 pts) Confusion or Disorientation No (0 pts) Intoxicated or Sedated No (0 pts) Impaired Gait No (0 pts) Mobility Assist Device Used No (0 pt) Altered Elimination No (0 pt) Score/Fall Risk Level 0 - 2 = Low Risk Oriented to surroundings. Abuse screen: Denies threats or abuse. Denies injuries from another. Nutritional screening: No deficits noted. Tuberculosis screening: No symptoms or risk factors identified. Assessment: 20:20 General: PT is independently ambulatory to the restroom for urine collection. Pt is in kd3 NAD, skin is warm and dry, respirations are even and unlabored, pt is speaking in full and complete sentences without pausing, Pt is alert and oriented x 4. Pt has family at the bedside. . 20:21 Neuro: Level of Consciousness is awake, alert, obeys commands, Oriented to person, kd3 place, time, situation. Cardiovascular: Patient's skin is warm and dry. Respiratory: Airway is patent Trachea midline Respiratory effort is even, unlabored, Respiratory pattern is regular, symmetrical. 21:53 General: Appears in no apparent distress. Behavior is calm, cooperative, Pt transported kd3 to ultrasound. . 22:10 GI: Bowel sounds present X 4 quads. kd3 22:10 General: Pt returned to the room from ultrasound. Pt placed on continuous monitoring, kd3 medicated for cramps and nausea. no further requests at this time. . Neuro: Level of Consciousness is awake, alert, obeys commands, Oriented to person, place, time, situation. Cardiovascular: Patient's skin is warm and dry. Respiratory: Airway is patent Trachea midline Respiratory effort is even, unlabored, Respiratory pattern is regular, symmetrical. 22:27 General: Pt came out of the room stating "i have kids at home, I have been here since kd3 5. Look at the time. Its 10:30. I am leaving." IV removed. PT left without paperwork. . GI: Abdomen is tender to palpation in right lower quadrant and left lower quadrant. Vital Signs: 19:09 BP 138 / 64; Pulse 75; Resp 18; Temp 99.7(O); Pulse Ox 100% ; Weight 68.04 kg; Height 5 db ft. 5 in. ; 22:10 BP 130 / 65; Pulse 90; Resp 16; Pulse Ox 100% on R/A; kd3 19:09 Body Mass Index 24.96 (68.04 kg, 165.1 cm) db ED Course: 18:34 Patient arrived in ED. im 19:11 Triage completed. db 19:11 Arm band placed on. db 19:53 Marlon Handley PA is PHCP. cp 19:53 Marlon Mcgovern MD is Attending Physician. cp 20:10 Ashley Joya, RN is Primary Nurse. kd3 20:20 Patient has correct armband on for positive identification. Provided Education on: kd3 urine collection . 20:20 No provider procedures requiring assistance completed. kd3 20:25 Initial lab(s) drawn, by me, sent to lab. Inserted saline lock: 20 gauge in right rv1 antecubital area, using aseptic technique. Blood collected. 22:05 US Transvaginal Ob In Process Unspecified. EDMS 22:29 IV discontinued, intact, bleeding controlled, No redness/swelling at site. Pressure kd3 dressing applied. Administered Medications: 22:10 Drug: Ondansetron PO 4 mg PO once Route: PO; kd3 22:30 Follow up: Response: No adverse reaction kd3 22:10 Drug: Acetaminophen PO 1000 mg PO once Route: PO; kd3 22:30 Follow up: Response: No adverse reaction kd3 Medication: 20:20 VIS not applicable for this client. kd3 Outcome: 22:25 Discharge ordered by MD. cp 22:28 Discharged to home ambulatory, kd3 22:28 Condition: stable 22:28 Discharge instructions given to patient, Instructed on discharge instructions, follow up and referral plans. verbal instructions to return if signs and symptoms persist or get worse. PT D/C without paperwork. Demonstrated understanding of instructions, 22:30 Patient left the ED. kd3 Signatures: Dispatcher [employer] EDMS Marlon Handley PA PA cp Doucette, Kyli, RN SEN kd3 Jacquelyn Gordillo RN RN db Alexia Washington rv1 Francie Morel Corrections: (The following items were deleted from the chart) 20:22 20:20 General: PT is indepndently ambulatory to the restroom . kd3 kd3
--- NOTE | 2024-02-27 22:26 | EDPHYS ---
Physician Documentation [facility] Name: Rose Lucio Age: 23 yrs Sex: Female : 2000 Arrival Date: 02/27/2024 Time: 18:30 Bed 8 Private MD: ED Physician Marlon Mcgovern HPI: 02/26 20:00 This 23 yrs old Black Female presents to ER via Ambulatory with complaints of Under 12 cp weeks , Abdominal Cramping, Dizziness. 20:00 The patient presents to the emergency department with nausea, abdominal cramping, cp dizziness. 20:00 The estimated gestational age is 12 weeks. course: care: private OB cp physician, Leakage of Fluid: none appreciated. Associated signs and symptoms: Pertinent negatives: chest pain, diarrhea, fever, ruptured membranes, vaginal bleeding. 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 - Infectious Disease History:: Denies. - Social history:: Smoking status: Patient denies any tobacco usage or history of. ROS: 20:05 Constitutional: Negative for body aches, chills, fever, poor PO intake, cp 20:05 Eyes: Negative for injury, pain, redness, and discharge, cp 20:05 Cardiovascular: Negative for chest pain, 20:05 Respiratory: Negative for cough, shortness of breath, wheezing, 20:05 Abdomen/GI: Positive for nausea, abdominal cramps, 20:05 Neuro: Positive for dizziness, 20:05 All other systems are negative, Exam: 20:10 Constitutional: The patient appears in no acute distress, alert, awake, non-toxic, well cp developed, well nourished, 20:10 Head/Face: Normocephalic, atraumatic. cp 20:10 Eyes: Periorbital structures: appear normal, Conjunctiva: normal, no exudate, no injection, Sclera: no appreciated abnormality, Lids and lashes: appear normal, bilaterally, 20:10 ENT: External ear(s): are unremarkable, Nose: is normal, Mouth: Lips: moist, Oral mucosa: pink and intact, moist, Posterior pharynx: is normal, airway is patent, no erythema, no exudate, 20:10 Chest/axilla: Inspection: normal, 20:10 Cardiovascular: Rate: normal, Rhythm: regular, 20:10 Respiratory: the patient does not display signs of respiratory distress, Respirations: normal, no use of accessory muscles, no retractions, labored breathing, is not present, Breath sounds: are clear throughout, no decreased breath sounds, no stridor, no wheezing, 20:10 Abdomen/GI: Inspection: gravid appearance, is noted, Bowel sounds: active, all quadrants, Palpation: soft, in all quadrants, mild abdominal tenderness, in the right lower quadrant and left lower quadrant, rebound tenderness, is not appreciated, 20:10 Back: CVA tenderness, is absent, 20:10 Neuro: Orientation: to person, place \T\ time. Mentation: is normal, Motor: moves all fours, strength is normal, Vital Signs: 19:09 BP 138 / 64; Pulse 75; Resp 18; Temp 99.7(O); Pulse Ox 100% ; Weight 68.04 kg; Height 5 db ft. 5 in. ; 22:10 BP 130 / 65; Pulse 90; Resp 16; Pulse Ox 100% on R/A; kd3 19:09 Body Mass Index 24.96 (68.04 kg, 165.1 cm) db MDM: 19:54 Patient medically screened. 20:20 Differential diagnosis: ectopic , dehydration, electrolyte abnormality. 22:25 Data reviewed: vital signs, nurses notes, lab test result(s), radiologic studies, cp ultrasound. 22:25 I considered the following discharge prescriptions or medication management in the emergency department Medications were administered in the Emergency Department. See MAR. Counseling: I had a detailed discussion with the patient and/or guardian regarding the historical points, exam findings, and any diagnostic results supporting the discharge/admit diagnosis, lab results, radiology results, to return to the emergency department if symptoms worsen or persist or if there are any questions or concerns that arise at home. Response to treatment: the patient's symptoms have markedly improved after treatment, and as a result, I will discharge patient. 02/26 19:56 Order name: Abo/rh Typing; Complete Time: 22:20 02/26 19:56 Order name: Basic Metabolic Panel; Complete Time: 22:20 02/26 19:56 Order name: CBC with Diff; Complete Time: 22:20 cp 02/26 22:20 Interpretation: Normal except: WBC 15.10; RBC 5.25; MCV 71.8; MCH 22.8; MCHC 31.8; RDW cp 17.1; NEUT A 10.8. 02/26 19:56 Order name: Test, Urine; Complete Time: 22:20 cp 02/26 19:56 Order name: Quantitative Hcg; Complete Time: 22:20 02/26 19:56 Order name: Urinalysis w/ reflexes; Complete Time: 22:20 cp 02/26 21:40 Order name: US Transvaginal Ob; Complete Time: 22:20 02/26 22:21 Interpretation: Report reviewed. 02/26 19:56 Order name: IV Saline Lock; Complete Time: 20:25 02/26 19:56 Order name: Labs collected and sent; Complete Time: 20:25 02/26 19:56 Order name: NPO; Complete Time: 20:25 cp Administered Medications: 22:10 Drug: Ondansetron PO 4 mg PO once Route: PO; kd3 22:30 Follow up: Response: No adverse reaction kd3 22:10 Drug: Acetaminophen PO 1000 mg PO once Route: PO; kd3 22:30 Follow up: Response: No adverse reaction kd3 Disposition Summary: 02/27/24 22:25 Discharge Ordered Notes: Location: Home cp Problem: new cp Symptoms: have improved cp Condition: Stable cp Diagnosis - related conditions, unspecified, first trimester cp - Lower abdominal pain, unspecified cp Followup: cp - With: Private Physician - When: 1 week - Reason: Recheck today's complaints Discharge Instructions: - Discharge Summary Sheet cp - Abdominal Pain During cp - Care cp - First Trimester of cp Forms: - Medication Reconciliation Form cp - Antibiotic Education cp - Prescription Opioid Use cp - Patient Portal Instructions cp - Leadership Thank You Letter cp Prescriptions: - 95-iron [id number] - take 1 tablet ORAL route once daily; 60 tablet; Refills: 0, Product Selection cp Permitted - Zofran 4 mg Oral Tablet - take 1 tablet ORAL route every 12 hours As needed; 20 tablet; Refills: 0, cp Product Selection Permitted Addendum: 03/01/2024 07:44 Co-signature as Attending Physician, Marlon Mcgovern MD I agree with the assessment and c cardenas plan of care. Signatures: Dispatcher [employer] EDTX Marlon Mcgovern MD MD cha Page, Corey, PA PA cp Doucette, Kyli, RN RN kd3 Jacquelyn Gordillo RN RN db
[2024-02-27 23:09] VITALS: BP 130/65; TEMP 99.7; O2SAT 100
== END 2024-02-27 22:30 | disposition home or self-care (01) ==
LOC: ER 18:30
DX: O26.891 Other specified pregnancy related conditions, first trimester (principal); Z3A.12 12 weeks gestation of pregnancy; Z88.0 Allergy status to penicillin
CPT/HCPCS: 85025; 81001; 80048; 36415; 86900; 81025; 86901; 84702; 76817; 99284; Q0162